=== PATIENT | male | born 1950 | race Caucasian/White ===

== ENCOUNTER 2020-07-18 05:27 | Emergency (ER) | payer OTHER, SELFPAY ==
[2020-07-18 05:30] VITALS: BP 128/68; PULSE 62; RESP 16; TEMP 35.9; O2SAT 100; BMI 24.3
--- NOTE | 2020-07-18 05:48 | ED_ITS ---
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 no other rash no shortness of breath no skin breakdown patient been using Benadryl will still itching a lot complaint: rash Onset (ago): day(s) (1) Related Data Previous Rx's Medication Instructions Recorded prednisone 40 mg PO DAILY #10 tab 07/18/20 Allergies Allergy/AdvReac Type Severity Reaction Status Date / Time No Known Allergies Allergy Unverified 04/30/20 14:36 [No Known Allergies*] Review of Systems Review of Systems: Yes all other systems are reviewed and are negative [facility] Past Medical History Medical History No known health problems Social History Social History Advance Directives: No Advance Directives Information Provided: No Physical Exam Vital Signs: Vital Signs: Last Vital Signs Temp 96.7 F L 07/18/20 05:30 Pulse 62 07/18/20 05:30 Resp 16 07/18/20 05:30 BP 128/68 07/18/20 05:30 Pulse Ox 100 07/18/20 05:30 Body Mass Index 24.3 Const: General: cooperative, healthy appearing, comfortable and no acute distress Orientation/consciousness: patient oriented x3 Skin: Other: contact dermatitis erythematous rash bilateral arm and dorsum of the hand no other rash noticed no skin breakdown Neuro: General: patient oriented x3 Discharge Plan Discharge Clinical Impression: Contact dermatitis Qualifiers: Contact dermatitis type: allergic Contact dermatitis trigger: other chemical product Qualified Code(s): L23.5 - Allergic contact dermatitis due to other chemical products Patient Disposition: Home, Self-Care Instructions: Contact Dermatitis (ED) Additional Instructions: take Benadryl 1-2 tablets every 6 hours for itching. Take prednisone 2 tablets daily for 5 days. Report to PCP /ED if worsening of rash Prescriptions: New prednisone 20 mg tablet 40 mg PO DAILY Qty: 10 RF: 0 Interventions: ED Discharge Assessment Last Done: 07/18/20 06:57 Discharge Date/Time: 07/18/20 06:57
[2020-07-18] MEDS: predniSONE 20 MG TABLET 60 MG PO (06:25)
== END 2020-07-18 06:57 | disposition home or self-care (01) ==
PROVIDERS: Emergency Provider Internal Medicine; PCP Internal Medicine
DX: L23.5 Allergic contact dermatitis due to other chemical products (principal)
CPT/HCPCS: 99283

== ENCOUNTER 2020-10-14 08:02 | Day surgery (SDC) | payer OTHER, SELFPAY ==
--- NOTE | 2020-10-13 09:57 | HO.ANESPROP2 ---
Documented by User: Sweta Zuniga 10/13/20 10:01 HPI - Anesthesia Eval Consult details Narrative: 69yo M for Colonoscopy [facility] Past Medical History Medical History No known health problems Surgical History Surgical History H/O basal cell carcinoma excision S/P skin biopsy Social History Social History Smoking Status: Never smoker Use of substances other than those prescribed or required for medical reasons: No Have you been hit, kicked, punched, or otherwise hurt by someone within the past year? If so, by whom?: No Advance Directives: No Advance Directives Information Provided: No Meds Allergies Allergy/AdvReac Type Severity Reaction Status Date / Time No Known Allergies Allergy Verified 10/14/20 08:58 [No Known Allergies*] Exam Exam Date and Time: October 13, 2020956 Assessment and Plan Assessment Anesthesia Assessment: Chart Reviewed Documented by User: Christine Nelson 10/14/20 09:11 [facility] Past Medical History Medical History No known health problems Family History Family history of problems with anesthesia: No Surgical History Surgical History H/O basal cell carcinoma excision S/P skin biopsy History of Problems with Anesthesia: No Social History Social History Smoking Status: Never smoker Use of substances other than those prescribed or required for medical reasons: No Have you been hit, kicked, punched, or otherwise hurt by someone within the past year? If so, by whom?: No Advance Directives: No Advance Directives Information Provided: No Meds Allergies Allergy/AdvReac Type Severity Reaction Status Date / Time No Known Allergies Allergy Verified 10/14/20 08:58 [No Known Allergies*] Exam Height,Weight and Vital Signs: Vital Signs Temp Pulse Resp BP Pulse Ox 10/14/20 08:55 97.9 F 62 18 130/69 99 Airway Mallampati Class: II TM Dist: >3cm Neck ROM: Full Heart: RRR Lungs: CTAB Assessment and Plan Assessment Anesthesia Assessment: Anesthesia Plan Discussed and Chart Reviewed Final Anesthetic Review NPO: Yes ASA Class: I Final Preanesthetic Review: No Changes in Pt Med Stat, Meds/Allgs Chart Reviewed, Consent Obtained/Reviewed and Anes Risks/Benef Reviewed Patient Risk: Low Procedure Risk: Low Assessment/Block/Sedation in SS: Assess/Block/Sedation-SS Anesthetic Plan Anesthetic Plan: MAC: Disposition: Standard PACU
[2020-10-14 08:38] VITALS: BMI 24.7
[2020-10-14 08:55] VITALS: BP 130/69; PULSE 62; RESP 18; TEMP 36.6; O2SAT 99
[2020-10-14] MEDS: Lactated Ringers 1,000 ML 100 ML IVCONT (09:16)
[2020-10-14 10:47] VITALS: BP 89/56; PULSE 50; RESP 12; TEMP 36.7; O2SAT 96
--- NOTE | 2020-10-14 10:48 | PM.OP ---
Brief Operative Note Date of Service: 10/14/20 Pre-op diagnosis: Screening, history of tubular adenomas Post-op diagnosis: other (Colon polyps, Diverticulosis) Procedure: Colonoscopy to the cecum with biopsy and removal of polyps Surgeon: Jorge A Avalos Anesthesia: MAC Estimated blood loss (mL): 3.0 Pathology: other (A. Colon polyps at 20cm) Condition: stable Disposition: PACU
[2020-10-14 10:52] VITALS: BP 101/62; PULSE 49; RESP 16; O2SAT 95
[2020-10-14 11:07] VITALS: BP 104/54; PULSE 50; RESP 17; TEMP 36.1; O2SAT 97
--- NOTE | 2020-10-14 12:25 | OP_ITS ---
SURGEON: Jorge A Avalos MD INDICATIONS: The patient presents for followup of colorectal cancer screening and personal history of tubular adenoma of the colon. Full consent has been obtained from him for this, including risks of bleeding and perforation. PREOPERATIVE DIAGNOSIS: POSTOPERATIVE DIAGNOSIS: PROCEDURE PERFORMED: Colonoscopy to cecum with biopsy and removal of polyps. ESTIMATED BLOOD LOSS: COMPLICATIONS: ANESTHESIA: Monitored anesthesia care. ASSISTANTS: SPECIMENS: PREOPERATIVE DIAGNOSES: Colorectal cancer screening and personal history of tubular adenoma of the colon. POSTOPERATIVE DIAGNOSES: Colorectal cancer screening and personal history of tubular adenoma of the colon, colon polyps, diverticulosis and internal hemorrhoids. DESCRIPTION OF PROCEDURE: The patient was placed in the left lateral decubitus position. The digital rectal exam revealed no abnormalities. The Olympus video pediatric colonoscope was entered into the rectum and advanced easily to the cecum. Once in the cecum, I did identify normal-appearing cecal pouch with appendiceal orifice and a normal-appearing ileocecal valve. The entire cecum was well visualized and appeared normal. There was transillumination of light deep in the right lower quadrant. The scope was slowly withdrawn assessing all mucosal surfaces carefully. Preparation was excellent. At 20 cm, were 2 flat approximately 3 or 4 mm polyps, which were each biopsied and completely removed with cold biopsy forceps. I did not visualize any other polyps, colitis, nor angiodysplasia. There was a mild amount of sigmoid diverticulosis. In the rectum, scope was retroflexed visualizing some small internal hemorrhoids, but no other pathology. The rectal mucosa appeared normal. Scope was straightened out and withdrawn from the patient. He tolerated the procedure well and was returned to the recovery area in stable condition. IMPRESSION: 1. Small colon polyps, status post biopsy and removal. 2. Diverticulosis. 3. Internal hemorrhoids. PLAN: The results of biopsy will be checked. I would recommend a repeat colonoscopy in 3 years for further screening given his previous history of tubular adenomas. He was advised not to use any aspirin and NSAIDs for 1 week. He will otherwise see me on a p.r.n. basis. This has been discussed with his . MD JOEL Mcallisetr/CORBY / [id number]
== END 2020-10-14 12:00 | disposition home or self-care (01) ==
PROVIDERS: PCP Internal Medicine; Visit Provider Internal Medicine
PROC: 0DJD8ZZ Inspection of Lower Intestinal Tract, Via Natural or Artificial Opening Endoscopic (ICD-10-PCS; CPT 45378; principal; 2020-10-14 09:20)
DX: Z12.11 Encounter for screening for malignant neoplasm of colon (principal); Z86.010 Personal history of colon polyps; D12.5 Benign neoplasm of sigmoid colon; K57.30 Diverticulosis of large intestine without perforation or abscess without bleeding; K64.8 Other hemorrhoids; Z85.828 Personal history of other malignant neoplasm of skin
CPT/HCPCS: 45380; 88305

== ENCOUNTER 2021-11-08 12:09 | Outpatient (REF) | payer OTHER, SELFPAY ==
[2021-11-08 12:12] LABS: MANUAL DIFF FLAG NO
[2021-11-08 12:18] LABS: Basophils Percent Auto 0.6 % (0-2); Eosinophils Absolute Auto 0.1 X10*3/uL (0.0-0.4); Eosinophils Percent Auto 1.7 % (0-4); Hemoglobin 15.9 g/dl (14.0-18.0); Imm Gran Abs Auto 0.01 X10*3/uL (0.00-0.03); Imm Gran Pct Auto 0.2 % (0.0-0.4); Lymphocytes Absolute Auto 1.8 X10*3/uL (1.2-4.9); Lymphocytes Percent Auto 34.1 % (20-40); Mean Corpuscular HGB Conc 33.8 g/dl (31.0-36.0); Mean Corpuscular Hemoglobin 31.7 pg (27.0-33.0); Mean Corpuscular Volume 93.8 fL (80.0-98.0); Mean Platelet Volume 10.6 fL (9.4-12.4); Monocytes Absolute Auto 0.7 X10*3/uL (0.1-1.2); Monocytes Percent Auto 12.5 % (2-11); Neutrophils Absolute Auto 2.7 x10*3/uL (2.0-8.3); Neutrophils Percent Auto 50.9 % (45-73); Platelet Count 209 X10*3/uL (160-400); Red Blood Count 5.01 X10*6/uL (4.60-5.80); Red Cell Distribution Width 14.5 % (11.0-16.0); White Blood Count 5.3 X10*3/uL (4.8-10.8)
[2021-11-08 12:28] LABS: Alanine Aminotransferase 31 U/L (0-40); Albumin Level 4.2 g/dL (3.5-5.0); Alkaline Phosphatase 61 U/L (39-117); Anion Gap 10 (12-20); Aspartate Amino Transferase 36 U/L (5-37); Bilirubin Total 0.8 mg/dL (0.0-1.0); Blood Urea Nitrogen 13 mg/dL (9-16); Calcium 9.4 mg/dL (8.4-10.2); Carbon Dioxide 28 mmol/L (22-29); Chloride 105 mmol/L (96-108); Cholesterol 219 mg/dL; Estimated Glomerular Filt Rate > 60; Glucose Fasting 90 mg/dL (60-99); HDL Cholesterol 51 mg/dL; LDL Cholesterol Calculated 150 mg/dl; Potassium 4.2 mmol/L (3.3-5.1); Sodium 139 mmol/L (135-145); Total Protein 6.7 g/dL (6.5-8.0); Triglycerides 94 mg/dL
[2021-11-08 12:45] LABS: Appearance Urine CLEAR; Color Urine YELLOW; Glucose Urine UA NEG (NEG); Leukocyte Esterase Urine NEG (NEG); Nitrite Urine NEG (NEG); Urine Blood NEG (NEG); Urine Ketones NEG (NEG); Urine Protein NEG (NEG-TRACE)
[2021-11-08 12:48] LABS: PSA,Total (Free>4and<10) 0.53 ng/mL (0.00-4.00)
== END 2021-11-08 12:10 | disposition home or self-care (01) ==
LOC: HO.LNP 12:09
PROVIDERS: PCP Internal Medicine; Visit Provider Internal Medicine
DX: Z00.00 Encounter for general adult medical examination without abnormal findings (principal); Z12.5 Encounter for screening for malignant neoplasm of prostate
CPT/HCPCS: 80053; 80061; 81003; 84153; 85025

== ENCOUNTER 2022-03-04 10:14 | Outpatient (REF) | payer OTHER, SELFPAY ==
--- NOTE | ~2022-03-04 | XR_ITS ---
EXAMINATION: XR HAND, RIGHT CLINICAL INFORMATION: Pain right hand 3rd digit. COMPARISON: None TECHNIQUE: PA, lateral, and oblique views of the right hand. FINDINGS: There are hypertrophic posterior enthesophytes with posterior soft tissue swelling along the DIP joints of the 2nd and 3rd digits. There is mild reduction in the PIP and DIP joint spaces of all digits. No visible acute fracture or dislocation seen. The MCP joint spaces are maintained. The soft tissues are normal. 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 There is associated mild dorsal soft tissue swelling at the DIP joint. No acute fracture or dislocation seen.
== END 2022-03-04 10:15 | disposition home or self-care (01) ==
LOC: HO.HOSX 10:14
PROVIDERS: Visit Provider Orthopaedic Surgery
DX: M79.641 Pain in right hand (principal)
CPT/HCPCS: 73130

== ENCOUNTER 2022-11-08 10:52 | Outpatient (REF) | payer OTHER, SELFPAY ==
[2022-11-08 10:55] LABS: MANUAL DIFF FLAG NO
[2022-11-08 11:17] LABS: Basophils Percent Auto 0.5 % (0-2); Eosinophils Absolute Auto 0.3 X10*3/uL (0.0-0.4); Eosinophils Percent Auto 5.3 % (0-4); Hematocrit 47.5 % (42.0-52.0); Hemoglobin 16.6 g/dl (14.0-18.0); Imm Gran Abs Auto 0.01 X10*3/uL (0.00-0.03); Imm Gran Pct Auto 0.2 % (0.0-0.4); Lymphocytes Absolute Auto 2.2 X10*3/uL (1.2-4.9); Lymphocytes Percent Auto 38.6 % (20-40); Mean Corpuscular HGB Conc 34.9 g/dl (31.0-36.0); Mean Corpuscular Hemoglobin 31.7 pg (27.0-33.0); Mean Corpuscular Volume 90.6 fL (80.0-98.0); Mean Platelet Volume 10.3 fL (9.4-12.4); Monocytes Absolute Auto 0.6 X10*3/uL (0.1-1.2); Monocytes Percent Auto 11.1 % (2-11); Neutrophils Absolute Auto 2.5 x10*3/uL (2.0-8.3); Neutrophils Percent Auto 44.3 % (45-73); Platelet Count 203 X10*3/uL (160-400); Red Blood Count 5.24 X10*6/uL (4.60-5.80); Red Cell Distribution Width 13.3 % (11.0-16.0); White Blood Count 5.7 X10*3/uL (4.8-10.8)
[2022-11-08 11:30] LABS: Color Urine Yellow; Glucose Urine UA Negative (Negative); Leukocyte Esterase Urine Negative (Negative); Nitrite Urine Negative (Negative); PH 7.5 (5.0-9.0); Specific Gravity - Urine <= 1.005 (1.005-1.025); Urine Blood Negative (Negative); Urine Ketones Negative (Negative); Urine Protein Negative (Neg-Trace)
[2022-11-08 11:31] LABS: Appearance Urine Clear; Bacteria Urine None Seen (None Seen); Hyaline Casts Urine 0-2 /LPF (0-2); RBC Urine 0-2 /HPF (0-2); Squamous Epithelial Cell Urine 0-2 /HPF (0-2); WBC Urine 0-5 /HPF (0-5)
[2022-11-08 12:04] LABS: Alanine Aminotransferase 28 U/L (0-40); Albumin Level 4.1 g/dL (3.5-5.0); Alkaline Phosphatase 58 U/L (39-117); Anion Gap 12 (12-20); Aspartate Amino Transferase 31 U/L (5-37); Bilirubin Total 0.9 mg/dL (0.0-1.0); Blood Urea Nitrogen 14 mg/dL (9-16); Calcium 9.3 mg/dL (8.4-10.2); Carbon Dioxide 27 mmol/L (22-29); Chloride 107 mmol/L (96-108); Cholesterol 237 mg/dL; Estimated Glomerular Filt Rate > 60; Glucose Fasting 92 mg/dL (60-99); HDL Cholesterol 48 mg/dL; LDL Cholesterol Calculated 174 mg/dl; Potassium 4.6 mmol/L (3.3-5.1); Sodium 141 mmol/L (135-145); Total Protein 6.2 g/dL (6.5-8.0); Triglycerides 75 mg/dL
[2022-11-08 12:21] LABS: PSA,Total (Free>4and<10) 0.65 ng/mL (0.00-4.00)
== END 2022-11-08 10:53 | disposition home or self-care (01) ==
LOC: HO.LNP 10:52
PROVIDERS: Visit Provider Internal Medicine
DX: Z00.00 Encounter for general adult medical examination without abnormal findings (principal); Z12.5 Encounter for screening for malignant neoplasm of prostate; E78.00 Pure hypercholesterolemia, unspecified
CPT/HCPCS: 80053; 80061; 81001; 84153; 85025

== ENCOUNTER 2023-05-18 10:58 | Outpatient (REF) | payer OTHER, SELFPAY ==
[2023-05-18 11:02] LABS: MANUAL DIFF FLAG NO
[2023-05-18 11:07] LABS: Basophils Percent Auto 0.5 % (0-2); Eosinophils Absolute Auto 0.2 X10*3/uL (0.0-0.4); Eosinophils Percent Auto 2.9 % (0-4); Hematocrit 45.4 % (42.0-52.0); Hemoglobin 15.8 g/dl (14.0-18.0); Imm Gran Abs Auto 0.02 X10*3/uL (0.00-0.03); Imm Gran Pct Auto 0.4 % (0.0-0.4); Lymphocytes Absolute Auto 1.9 X10*3/uL (1.2-4.9); Lymphocytes Percent Auto 35.2 % (20-40); Mean Corpuscular HGB Conc 34.8 g/dl (31.0-36.0); Mean Corpuscular Hemoglobin 31.9 pg (27.0-33.0); Mean Corpuscular Volume 91.5 fL (80.0-98.0); Mean Platelet Volume 10.4 fL (9.4-12.4); Monocytes Absolute Auto 0.6 X10*3/uL (0.1-1.2); Monocytes Percent Auto 11.1 % (2-11); Neutrophils Absolute Auto 2.8 x10*3/uL (2.0-8.3); Neutrophils Percent Auto 49.9 % (45-73); Platelet Count 196 X10*3/uL (160-400); Red Blood Count 4.96 X10*6/uL (4.60-5.80); Red Cell Distribution Width 14.2 % (11.0-16.0); White Blood Count 5.5 X10*3/uL (4.8-10.8)
[2023-05-18 11:35] LABS: Alanine Aminotransferase 27 U/L (0-40); Albumin Level 4.1 g/dL (3.5-5.0); Alkaline Phosphatase 53 U/L (39-117); Anion Gap 14 (12-20); Aspartate Amino Transferase 36 U/L (5-37); Bilirubin Total 0.9 mg/dL (0.0-1.0); Blood Urea Nitrogen 13 mg/dL (9-16); Calcium 9.2 mg/dL (8.4-10.2); Carbon Dioxide 24 mmol/L (22-29); Chloride 104 mmol/L (96-108); Cholesterol 195 mg/dL (<200); Estimated Glomerular Filt Rate > 60; Glucose Fasting 95 mg/dL (60-99); HDL Cholesterol 54 mg/dL (>40); LDL Cholesterol Calculated 125 mg/dL (<100); Potassium 4.2 mmol/L (3.3-5.1); Sodium 138 mmol/L (135-145); Total Protein 6.7 g/dL (6.5-8.0); Triglycerides 84 mg/dL (<150)
== END 2023-05-18 10:59 | disposition home or self-care (01) ==
LOC: HO.LNP 10:58
PROVIDERS: Visit Provider Internal Medicine
DX: Z00.00 Encounter for general adult medical examination without abnormal findings (principal); Z12.5 Encounter for screening for malignant neoplasm of prostate; E78.00 Pure hypercholesterolemia, unspecified
CPT/HCPCS: 80053; 80061; 81001; 84153; 85025

== ENCOUNTER 2023-11-10 11:36 | Outpatient (REF) | payer OTHER, SELFPAY ==
[2023-11-10 11:40] LABS: MANUAL DIFF FLAG NO
[2023-11-10 12:15] LABS: Basophils Percent Auto 0.5 % (0-2); Eosinophils Absolute Auto 0.2 X10*3/uL (0.0-0.4); Eosinophils Percent Auto 3.2 % (0-4); Hematocrit 48.3 % (42.0-52.0); Hemoglobin 16.8 g/dl (14.0-18.0); Imm Gran Abs Auto 0.02 X10*3/uL (0.00-0.03); Imm Gran Pct Auto 0.3 % (0.0-0.4); Lymphocytes Absolute Auto 2.1 X10*3/uL (1.2-4.9); Lymphocytes Percent Auto 35.4 % (20-40); Mean Corpuscular HGB Conc 34.8 g/dl (31.0-36.0); Mean Corpuscular Hemoglobin 31.9 pg (27.0-33.0); Mean Corpuscular Volume 91.7 fL (80.0-98.0); Mean Platelet Volume 10.3 fL (9.4-12.4); Monocytes Absolute Auto 0.6 X10*3/uL (0.1-1.2); Monocytes Percent Auto 10.8 % (2-11); Neutrophils Absolute Auto 2.9 x10*3/uL (2.0-8.3); Neutrophils Percent Auto 49.8 % (45-73); Platelet Count 198 X10*3/uL (160-400); Red Blood Count 5.27 X10*6/uL (4.60-5.80); White Blood Count 5.9 X10*3/uL (4.8-10.8)
[2023-11-10 12:17] LABS: Appearance Urine Clear; Color Urine Yellow; Glucose Urine UA Negative (Negative); Leukocyte Esterase Urine Negative (Negative); Nitrite Urine Negative (Negative); Urine Blood Negative (Negative); Urine Ketones Negative (Negative); Urine Protein Negative (Neg-Trace)
[2023-11-10 12:21] LABS: Bacteria Urine None Seen (None Seen); Hyaline Casts Urine 0-2 /LPF (0-2); RBC Urine 0-2 /HPF (0-2); Squamous Epithelial Cell Urine 0-2 /HPF (0-2); WBC Urine 0-5 /HPF (0-5)
[2023-11-10 12:32] LABS: Alanine Aminotransferase 29 U/L (0-40); Albumin Level 4.2 g/dL (3.5-5.0); Alkaline Phosphatase 62 U/L (39-117); Anion Gap 12 (12-20); Aspartate Amino Transferase 34 U/L (5-37); Bilirubin Total 0.7 mg/dL (0.0-1.0); Blood Urea Nitrogen 12 mg/dL (9-16); Calcium 9.3 mg/dL (8.4-10.2); Carbon Dioxide 26 mmol/L (22-29); Chloride 104 mmol/L (96-108); Cholesterol 230 mg/dL (<200); Estimated Glomerular Filt Rate > 60; Glucose Fasting 87 mg/dL (60-99); HDL Cholesterol 57 mg/dL (>40); LDL Cholesterol Calculated 153 mg/dL (<100); Potassium 3.7 mmol/L (3.3-5.1); Sodium 138 mmol/L (135-145); Triglycerides 104 mg/dL (<150)
[2023-11-10 12:48] LABS: PSA,Total (Free>4and<10) 0.57 ng/mL (0.00-4.00)
== END 2023-11-10 11:37 | disposition home or self-care (01) ==
LOC: HO.LNP 11:36
PROVIDERS: Visit Provider Internal Medicine
DX: Z00.00 Encounter for general adult medical examination without abnormal findings (principal); Z12.5 Encounter for screening for malignant neoplasm of prostate; E78.00 Pure hypercholesterolemia, unspecified
CPT/HCPCS: 80053; 80061; 81001; 84153; 85025

== ENCOUNTER 2024-11-06 06:43 | Day surgery (SDC) | payer OTHER, SELFPAY ==
--- OUTSIDE RECORDS SUMMARY | 2024-10-08 13:58 | XMS_ITS ---
Author Organization Abilio Lloyd MD Address [address] [place] [phone] Care Team Providers Care Rehabilitation Director Name Role Phone Abilio Lloyd Primary Care Provider Allergies No Known Allergies REASON FOR VISIT 6 month, NO Covid symptoms Medications Medication SIG (Take, Route, Frequency, Duration) Notes Start Date End Date Status Ibuprofen 800 MG 1 tablet with food o r milk as needed Orally Three times a day for 10 days 09/17/2019 Not-Taking Cyclobenzaprine HCl 5 MG 1 tablet as nee ded Orally Three times a day for 10 days 09/17/2019 Not-Taking Clobetasol Propionate 0.05 % 1 application Externally Twice a day for 10 day(s) 07/20/2020 Not-Taking Vital Signs Blood pressure systolic 120 mm Hg 05/29/20 23 Blood pressure diastolic 72 mm Hg 023 Height 75 in 05/29/2023 Weight 208 lbs 05/29/2023 BMI 26.00 kg/m2 05/29/2023 weight is down 15 pounds sin 11-15-22 Encounters Encounter Location Date Provider Diagnosis Abilio Lloyd MD [address] [place] [address] [place] [phone] 05/29/2023 Abilio Lloyd Spinal stenosis of l umbar region without neurogenic claudication M48.061 ; Right ankle swelling M25.471 and Hypercholesteremia E78.00 Assessments Encounter Date Diagnosis (ICD Code) Assessment Notes Treatment Notes Treatment Clinical Notes Section Notes 05/29/2023 Spinal stenosis of lumbar region without neurogenic claudication (ICD-10 - M48.061) only pain is during sleep, will continue to monitor 05/29/2023 Right ankle swelling (ICD-10 - M25.471) has resolved 05/29/2023 Hypercholesteremia (ICD-10 - E78.00) stable,. will continue to monitor Plan Of Treatment Treatment Notes Assessment Notes Spinal stenosis of lumbar re gion without neurogenic claudication only pain is during sleep, will continue to monitor Right ankle swelling has resolved Hypercholesteremia stable,. will contin ue to monitor Next Appt Details Provider Name:Abilio gonsalez, 12/23/2024 07:30:00 AM, [address] [place] [address], Suite [facility], [place], [place], [phone], Provider Name:Abilio gonsalez, 12/30/2024 10:30:00 AM, [address] [place] [address], Suite [facility], [place], [place], [phone], Progress Notes * Alen HIDALGO BDOB:07/1951 (72 yo M)Acc No.[id number]:05/29/2023 Progress Notes Patient:?Alen Hidalgo Provider:?Abilio Lloyd MD :1950???Age:72 Y???Sex:Male Agus e:05/29/2023 Address: [address], [id number] Subjective: * Chief Complaints: * ???6 monthNO Covid symptoms * HPI: ???SDOH Questions:?SDOH Questions?In the past year have you been worried about losing housing??No.?Symptom(s):? patient is a 72 yo male here for 6 month follow up visit, has been doing well.. had mri on back and ankle. * ROS:?General/Constitutional:?Denies?Chills.?Denies?Fatigue.?Denies?Fever.?Denies?Headache.?ENT:?Patient denies?decreased sense of smell , any loss of taste , sore throat.?Denies?Sore throat.?Respiratory:?Denies?Cough.?Denies?Shortness of breath at rest.?Denies?Shortness of breath with exertion.?Gastrointestinal:?Denies?Diarrhea.?Denies?Nausea.?Musculoskeletal:?Patient denies?muscle aches.?Peripheral Vascular:?Patient denies?red and blue toes.? * Medical History:? * Surgical History:? * Hospitalization/Major Diagno stic Procedure:? * Medications:?Not-Taking/PRNC lobetasol Propionate 0.05 % Cream 1 application Externally Twice a dayIbuprofen 800 MG Tablet 1 tablet with food or milk as needed Orally Three times a dayCyclobenzaprine HCl 5 MG Tablet 1 tablet as needed Orally Three times a dayMedication List reviewed and reconciled with the patientNot-Taking/PRN Clobetasol Propionate 0.05 % Cream 1 application Externally Twice a dayNot-Taking/PRN Ibuprofen 800 MG Tablet 1 tablet with food or milk as needed Orally Three times a dayNot-Taking/PRN Cyclobenzaprine HCl 5 MG Tablet 1 tablet as needed Orally Three times a dayMedication List reviewed and reconciled with the patient * Allergies:?N.K.D.A.yes[Aller gies Verified] Objective: * Vitals:?Ht: 75, Wt:208, BMI: 26.00, BP:120/72 weight is down 15 pounds since 11-15-22. * ???Past Orders: ???Lab:Complete Blood Count Auto Diff (Order Date - 05/18/2023) (Collection Date - 05/18/2023) ? Value Reference Range ?White Blood Count 5.5 4. 8-10.8 - X10*3/uL ?Red Blood Count 4.96 4.60 -5.80 - X10*6/uL ?Hemoglobin 15.8 14.0-18.0 - g/dl ?Hematocrit 45.4 42.0-52.0 - % ?Mean Corpuscular Volume 91.5 80.0-98.0 - fL ?Mean Corpuscular Hemoglobin 31.9 27.0-33.0 - pg ?Mean Corpuscular HGB Conc 34.8 31.0-36.0 - g/dl ?Red Cell Distribution Width 14.2 11.0-16.0 - % ?Platelet Count 196 160-4 00 - X10*3/uL ?Mean Platelet Volume 10.4 9.4-12.4 - fL ?Neutrophils Percent Auto 49.9 45-73 - % ?Imm Gran Pct Auto 0.4 0. 0-0.4 - % ?Lymphocytes Percent Auto 35.2 20-40 - % ?Monocytes Percent Auto 11.1 H 2-11 - % ?Eosinophils Percent Auto 2.9 0-4 - % ?Basophils Percent Auto 0.5 0-2 - % ?NRBC Pct Auto 0.0 0.0-0. 2 - /100WBC ?Neutrophils Absolute Auto 2.8 2.0-8.3 - x10*3/uL ?Imm Gran Abs Auto 0.02 0. 00-0.03 - X10*3/uL ?Lymphocytes Absolute Auto 1.9 1.2-4.9 - X10*3/uL ?Monocytes Absolute Auto 0.6 0.1-1.2 - X10*3/uL ?Eosinophils Absolute Auto 0.2 0.0-0.4 - X10*3/uL ?Basophils Absolute Auto 0.0 0.0-0.2 - X10*3/uL ?NRBC Abs Auto 0.000 0.0-0. 012 - X10*3/uL ???Lab:Comprehensive [place]. P nereyda Fast (Order Date - 05/18/2023) (Collection Date - 05/18/2023) ? Value Reference Range ?Sodium 138 135-145 - mmo l/L ?Bilirubin Total 0.9 0.0- 1.0 - mg/dL ?Aspartate Amino Transferase 36 5-37 - U/L ?Alanine Aminotransferase 27 0-40 - U/L ?Total Protein 6.7 6.5-8. 0 - g/dL ?Albumin Level 4.1 3.5-5. 0 - g/dL ?Alkaline Phosphatase 53 39-117 - U/L ?Potassium 4.2 3.3-5.1 - mmol/L ?Chloride 104 96-108 - mm ol/L ?Carbon Dioxide 24 22-29 - mmol/L ?Anion Gap 14 12-20 - ?Blood Urea Nitrogen 13 9-16 - mg/dL ?Creatinine 0.81 0.5-1.4 - mg/dL ?Estimated Glomerular Filt Rate > 60 - ?Glucose Fasting 95 60-9 9 - mg/dL ?Calcium 9.2 8.4-10.2 - m g/dL ???Lab:Lipid Panel (Order Da te - 05/18/2023) (Collection Date - 05/18/2023) ? Value Reference Range ?Triglycerides 84 <150 - mg/dL ?Cholesterol 195 <200 - m g/dL ?LDL Cholesterol Calculated 125 H <100 - mg/dL ?HDL Cholesterol 54 >40 - mg/dL ???Lab:PSA,Total (Free>4and< 10) (Order Date - 05/18/2023) (Collection Date - 05/18/2023) ? Value Reference Range ?PSA,Total (Free>4and<10) 0.69 0.00-4.00 - ng/mL ???Lab:UA ClnCatch+Micro w/r flx Cult (Order Date - 05/18/2023) (Collection Date - 05/18/2023) ? Value Reference Range ?Color Urine Yellow - ?Appearance Urine Clear - ?PH 8.0 5.0-9.0 - ?Glucose Urine UA Negative Neg ative - mg/dL ?Urine Blood Negative Negative - ?Specific [place] - Urine 1.010 1.005-1.025 - ?Urine Protein Negative Neg-Tr chichi - mg/dL ?Urine Ketones Negative Negati ve - mg/dL ?Nitrite Urine Negative Negati ve - ?Leukocyte Esterase Urine Negative Negative - ?RBC Urine 0-2 0-2 - /HPF ?WBC Urine 0-5 0-5 - /HPF ?Squamous Epithelial Cell Urine 0-2 0-2 - /HPF ?Bacteria Urine None Seen None Seen - ?Hyaline Casts Urine 0-2 0-2 - /LPF * Examination: ???General Examination: ?HEAD:? normocephalic.?SKIN:? good turgor.?HEART:? regular rate and rhythm, no murmurs, rubs, gallops.?LUNGS:? no wheezes, rales, rhonchi, good air movement, clear to auscultation bilaterally.?NEUROLOGIC:? abnormal with no foot drop. .? Assessment: * Assessment: 1.?Spinal stenosis of lumbar region without neurogenic claudication - M48.061 (Primary)?2.?Right ankle swelling - M25.471?3.?Hypercholesteremia - E78.00? Plan: * Treatment: 2.?Right ankle swelling? Notes: has resolved.?? 3.?Hypercholesteremia? Notes: stable,. will continue to monitor.?? * Procedure Codes:? * * Sign off status: Completed true * Provider:?Abilio Lloyd MD Date:?1 Generated for Lashay junior/Neel/eTransmitting on:?10/08/2024 01:58 PM EST History and Physical Notes * HPI (History of Present Illness) Category Sub-Category Detail Notes Category Not es Symptom(s) patient is a 72 yo male here for 6 month follow up visit, has been doing well.. had mri on back and ankle SDOH Questions SDOH Questions In the past year have you been worried about losing housing?: No Examination Category Sub-Category Detail Notes Category Not es General Examination HEAD: normocephalic HEART: regular rate and rhy thm, no murmurs, rubs, gallops LUNGS: no wheezes, rales, r honchi, good air movement, clear to auscultation bilaterally NEUROLOGIC: abnormal with no cb t drop. SKIN: good turgor
--- OUTSIDE RECORDS SUMMARY | 2024-10-08 13:59 | XMS_ITS ---
Author Organization Abilio Lloyd MD Address [address] [place] [phone] Care Team Providers Care [employer] Worker Name Role Phone Abilio Lloyd Primary Care Provider [phone] Allergies No Known Allergies Results Component Value Reference Range Notes Occult Blood, Stool, Guaiac Reviewed date:12/26/2023 02:16:03 PM Interpretation: Performing Lab: Notes/Report: 0 Occult Blood, Stool, Guaiac Neg REASON FOR VISIT annual visit, No Covid symptoms Medications Medication SIG (Take, Route, Frequency, Duration) Notes Start Date End Date Status Clobetasol Propionate 0.05 % 1 application Externally Twice a day for 10 day(s) 07/20/2020 Not-Taking Ibuprofen 800 MG 1 tablet with food o r milk as needed Orally Three times a day for 10 days 09/17/2019 Not-Taking Cyclobenzaprine HCl 5 MG 1 tablet as nee ded Orally Three times a day for 10 days 09/17/2019 Not-Taking Social History Tobacco Use: Social History Observation Description Date Details (start date - stop date) Never Smoker NA - NA Tobacco Use/Smoking Question Answer Notes Patient is a nonsmoker Additional Findings: Tobacco Non-User Cu rrent non-smoker, currently using no form of tobacco Alcohol Screen Question Answer Notes Did you have a drink containing alcohol in the p ast year? No Points 0 Interpretation Negative Vital Signs Blood pressure systolic 132 mm Hg 12/26/19 24 Blood pressure diastolic 60 mm Hg 024 Height 75 in 12/26/2023 Weight 220 lbs 12/26/2023 BMI 27.50 kg/m2 12/26/2023 weight is up 12 pounds since 05-29-24 Encounters Encounter Location Date Provider Diagnosis Abilio Lloyd MD [address] [place] [address] [place] [phone] 12/26/2023 Abilio Lloyd Vertigo R42 ; Annual physical exam Z00.00 ; History of basal cell cancer Z85.828 ; Hypercholesteremia E78.00 ; Colon cancer screening Z12.11 and Depression screening Z13.31 Assessments Encounter Date Diagnosis (ICD Code) Assessment Notes Treatment Notes Treatment Clinical Notes Section Notes 12/26/2023 Vertigo (ICD-10 - R42) had o nly one episode, will continue to monitor 12/26/2023 Annual physical exam (ICD-10 - Z00.00) labs reviewed and discussed with patient 12/26/2023 History of basal endy l cancer (ICD-10 - Z85.828) going for some moh's surgery 12/26/2023 Hypercholesteremia (ICD-10 - E78.00) needs to get on diet, will continue to monitor 12/26/2023 Colon cancer screeni ng (ICD-10 - Z12.11) guaiac negative 12/26/2023 Depression screening (ICD-10 - Z13.31) negative screen Plan Of Treatment Treatment Notes Assessment Notes Vertigo had only one episode , will continue to monitor Annual physical exam labs reviewed and d iscussed with patient History of basal cell cancer going for s ome moh's surgery Hypercholesteremia needs to get on diet , will continue to monitor Colon cancer screening guaiac negative Depression screening negative screen Next Appt Details Follow Up: 1 Year, Reason: Provider Name:Abilio Jordan Anjelicaabbie wallace, 12/23/2024 07:30:00 AM, [address], [address], [place], [phone], Provider Name:Abilio Castillo wallace, 12/30/2024 10:30:00 AM, [address], [address], [place], [place], [phone], Progress Notes * Alen HIDALGO BDOB:07/1951 (73 yo M)Acc No.[id number]:12/26/2023 Progress Notes Patient:?Alen Hidalgo Provider:?Abilio Lloyd MD :1950???Age:73 Y???Sex:Male Agus e:12/26/2023 Address:[address] [place] [address] , [place] [id number] Subjective: * Chief Complaints: * ???Annual visitNo Covid symp toms * HPI: ???Depression Screening:?PHQ-9?Little interest or pleasure in doing things?Not at all,?Feeling down, depressed, or hopeless?Not at all,?Trouble falling or staying asleep, or sleeping too much?Not at all,?Feeling tired or having little energy?Not at all,?Poor appetite or overeating?Not at all,?Feeling bad about yourself or that you are a failure, or have let yourself or your family down?Not at all,?Trouble concentrating on things, such as reading the newspaper or watching television?Not at all,?Moving or speaking so slowly that other people could have noticed; or the opposite, being so fidgety or restless that you have been moving around a lot more than usual?Not at all,?Thoughts that you would be better off or of hurting yourself in some way?Not at all,?Total Score?0.?Interpretation and Intervention?Depression Screening Findings?Negative,?Follow-Up for Depression?: review of PHQ-9 found negative result, no follow-up needed.?Communication Needs:?Communication Needs?Does the patient have a hearing impairment?No,?Does the patient have a vision impairment??Yes,?If yes, what is the vision impairment??Glasses,?Does the patient have a cognition impairment??No.?Fall Risk:?History?Have you had any falls with injury in the past year??No,?Have you had two or more falls in the past year??No.?SDOH Questions:?SDOH Questions?In the past year have you been worried about losing housing??No,?In the past year have you or any family members you live with been unable to get any of the following when it was really needed? Check all that apply:?None.?Symptom(s):? patient is a 73 yo m,frank here for annual visit with review of recent labs and follow up of chronic issues. * ROS:?General/Constitutional:?Patient denies?fatigue , headache.?Change in appetite?denies.?Chills?denies.?Fever?denies.?Ophthalmologic:?Blurred vision?denies.?Discharge?denies.?Pain?denies.?ENT:?Patient denies?decreased sense of smell , any loss of taste , sore throat.?Decreased hearing?denies.?Sore throat?denies.?Swollen glands?denies.?Endocrine:?Cold intolerance?denies.?Excessive thirst?denies.?Heat intolerance?denies.?Weight loss?denies.?Respiratory:?Cough?denies.?Shortness of breath at rest?denies.?Shortness of breath with exertion?denies.?Wheezing?denies.?Cardiovascular:?Chest pain at rest?denies.?Chest pain with exertion?denies.?Irregular heartbeat?denies.?Shortness of breath?denies.?Gastrointestinal:?Abdominal pain?denies.?Change in bowel habits?denies.?Diarrhea?denies.?Nausea?denies.?Rectal bleeding?denies.?Vomiting?denies .?Genitourinary:?Blood in urine?denies.?Difficulty urinating?denies.?Frequent urination?denies.?Musculoskeletal:?Patient denies?muscle aches.?Painful joints?denies.?Weakness?denies.?Peripheral Vascular:?Patient denies?red and blue toes.?Skin:?Dry skin?denies.?Itching?denies.?Denies?Mole(s),? changes in moles, new moles or any lesions of concern.?Denies?Photosensitivity.?Rash?denies.?Neurologic:?Dizziness?denies.?Fainting?denies.?Headache?denies.? * Medical History:? * Surgical History:? * Hospitalization/Major Diagno stic Procedure:? * Family History:?Father: dece ased 90 yrs, diagnosed with COPD.?Mother: 88 yrs, diagnosed with Alzheimer disease.?1 brother(s) . .? Father- Parkinson's Mother- Dementia, No pertinent family medical history, Denies mental health/substance abuse family history, Denies mental health/substance abuse family history, Denies mental health/substance abuse family history. * Social History:?Tobacco Use:?Tobacco Use/Smoking?Patient is a?nonsmoker,?Additional Findings: Tobacco Non-User?Current non-smoker, currently using no form of tobacco.?Drugs/Alcohol:?Alcohol Screen?Did you have a drink containing alcohol in the past year??No,?Points?0,?Interpretation?Negative.?Miscellaneous:?Caffeine: yes, frequency:, more than 4 cups per day. no Children. Exercise: yes, 2-3 times per week walking, and light weights on other days. Housing: owning. Living with: . Marital status: . Occupation: retired. Pets: cat x1. no Travel outside of the [place]. * Medications:?Not-Taking/PRNC lobetasol Propionate 0.05 % Cream [...] Allergies:?N.K.D.A.yes[Aller gies Verified] Objective: * Vitals:?Ht: 75, Wt:220, BMI: 27.50, BP:132/60 weight is up 12 pounds since 05-29-24. * ???Past Orders: ???Lab:Lipid Panel (Order Da te 11/10/2023) (Collection Date - 11/10/2023) ? Value Reference Range ?Triglycerides 104 <150 - mg/dL ?Cholesterol 230 H <200 - m g/dL ?LDL Cholesterol Calculated 153 H <100 - mg/dL ?HDL Cholesterol 57 >40 - mg/dL ???Lab:PSA,Total (Free>4and< 10) (Order Date - 11/10/2023) (Collection Date - 11/10/2023) ? Value Reference Range ?PSA,Total (Free>4and<10) 0.57 0.00-4.00 - ng/mL ???Lab:Comprehensive [place]. P nereyda Fast (Order Date - 11/10/2023) (Collection Date - 11/10/2023) ? Value Reference Range ?Sodium 138 135-145 - mmo l/L ?Bilirubin Total 0.7 0.0- 1.0 - mg/dL ?Aspartate Amino Transferase 34 5-37 - U/L ?Alanine Aminotransferase 29 0-40 - U/L ?Total Protein 7.0 6.5-8. 0 - g/dL ?Albumin Level 4.2 3.5-5. 0 - g/dL ?Alkaline Phosphatase 62 39-117 - U/L ?Potassium 3.7 3.3-5.1 - mmol/L ?Chloride 104 96-108 - mm ol/L ?Carbon Dioxide 26 22-29 - mmol/L ?Anion Gap 12 12-20 - ?Blood Urea Nitrogen 12 9-16 - mg/dL ?Creatinine 1.01 0.5-1.4 - mg/dL ?Estimated Glomerular Filt Rate > 60 - ?Glucose Fasting 87 60-9 9 - mg/dL ?Calcium 9.3 8.4-10.2 - m g/dL ???Lab:UA ClnCatch+Micro w/r flx Cult (Order Date - 11/10/2023) (Collection Date - 11/10/2023) ? Value Reference Range ?Color Urine Yellow - ?Appearance Urine Clear - ?PH 7.0 5.0-9.0 - ?Glucose Urine UA Negative Neg ative - mg/dL ?Urine Blood Negative Negative - ?Specific [place] - Urine 1.010 1.005-1.025 - ?Urine Protein [...] ?Hyaline Casts Urine 0-2 0-2 - /LPF ???Lab:Complete Blood Count Auto Diff (Order Date - 11/10/2023) (Collection Date - 11/10/2023) ? Value Reference Range ?White Blood Count 5.9 4. 8-10.8 - X10*3/uL ?Red Blood Count 5.27 4.60 -5.80 - X10*6/uL ?Hemoglobin 16.8 14.0-18.0 - g/dl ?Hematocrit 48.3 42.0-52.0 - % ?Mean Corpuscular Volume 91.7 80.0-98.0 - fL ?Mean Corpuscular Hemoglobin 31.9 27.0-33.0 - pg ?Mean Corpuscular HGB Conc 34.8 31.0-36.0 - g/dl ?Red Cell Distribution Width 14.0 11.0-16.0 - % ?Platelet Count 198 160-4 00 - X10*3/uL ?Mean Platelet Volume 10.3 9.4-12.4 - fL ?Neutrophils Percent Auto 49.8 45-73 - % ?Imm Gran Pct Auto 0.3 0. 0-0.4 - % ?Lymphocytes Percent Auto 35.4 20-40 - % ?Monocytes Percent Auto 10.8 2-11 - % ?Eosinophils Percent Auto 3.2 0-4 - % ?Basophils Percent Auto 0.5 0-2 - % ?NRBC Pct Auto 0.0 0.0-0. 2 - /100WBC ?Neutrophils Absolute Auto 2.9 2.0-8.3 - x10*3/uL ?Imm Gran Abs Auto 0.02 0. 00-0.03 - X10*3/uL ?Lymphocytes Absolute Auto 2.1 1.2-4.9 - X10*3/uL ?Monocytes Absolute Auto 0.6 0.1-1.2 - X10*3/uL ?Eosinophils Absolute Auto 0.2 0.0-0.4 - X10*3/uL ?Basophils Absolute Auto 0.0 0.0-0.2 - X10*3/uL ?NRBC Abs Auto 0.000 0.0-0. 012 - X10*3/uL * Examination: ???General Examination: ?GENERAL APPEARANCE:?well developed, well nourished, in no acute distress.?HEAD:?normocephalic, atraumatic.?EYES:?pupils equal, round, reactive to light and accommodation, sclera non-icteric.?EARS:?normal.?ORAL CAVITY:?mucosa moist.?THROAT:?clear.?NECK/THYROID:?neck supple, full range of motion, no cervical lymphadenopathy, no bruits.?SKIN:?warm and dry, no suspicious lesions.?HEART:?regular rate and rhythm, S1, S2 normal, no murmurs.?LUNGS:?clear to auscultation bilaterally.?ABDOMEN:?soft, nontender, nondistended, bowel sounds present, normal, no organomegaly , no masses palpable.?RECTAL EXAM:?normal tone, no external hemorrhoids, no masses palpable, prostate normal, stool guaiac negative.?MALE GENITOURINARY:?circumcised, no penile lesions or discharge, no testicular mass, testes descended bilaterally.?EXTREMITIES:?no clubbing, cyanosis, or edema.?NEUROLOGIC:?nonfocal, motor strength normal upper and lower extremities, sensory exam intact.? Assessment: * Assessment: 1.?Annual physical exam - Z0 0.00 (Primary)?2.?Vertigo - R42?3.?History of basal cell cancer - Z85.828?4.?Hypercholesteremia - E78.00?5.?Colon cancer screening - Z12.11?6.?Depression screening - Z13.31? Plan: * Treatment: 2.?Vertigo? Notes: had only one episode, will continue to monitor.?? 3.?History of basal cell can cer? Notes: going for some moh's surgery.?? 4.?Hypercholesteremia? Notes: needs to get on diet, will continue to monitor.?? 5.?Colon cancer screening?LAB: Occult Blood, Stool, Guaiac ? Value Reference Range ?Occult Blood, Stool, Guaiac Neg Notes: guaiac negative.??6.?Depression screening? Notes: negative screen.?? * Procedure Codes:?15879 TEST FOR BLOOD, FECES * Follow Up:?1 Year * * Sign off status: Completed true * Provider:?Abilio Lloyd MD Date:?0 12/26/2023 Generated for Lashay junior/Neel/Ijeoma on:?10/08/2024 01:58 PM EST History and Physical Notes * HPI (History of Present Illness) Category Sub-Category Detail Notes Category Not es Symptom(s) patient is a 73 yo m,frank here for annual visit with review of recent labs and follow up of chronic issues. Depression Screening PHQ-9 Little inte rest or pleasure in doing things: Not at all Feeling down, depressed, or hopeless: No t at all Trouble falling or staying asleep, or sl eeping too much: Not at all Feeling tired or having little energy: N ot at all Poor appetite or overeating: Not at all Feeling bad about yourself o r that you are a failure, or have let yourself or your family down: Not at all Trouble concentrating on thi ngs, such as reading the newspaper or watching television: Not at all Moving or speaking so slowly that other people could have noticed; or the opposite, being so fidgety or restless that you have been moving around a lot more than usual: Not at all Thoughts that you would be b destin off or of hurting yourself in some way: Not at all Total Score: 0 Interpretation and Intervention Depression Lizzette lainez Findings: Negative Follow-Up for Depression: : review of PH Q-9 found negative result, no follow-up needed SDOH Questions SDOH Questions In the past year have you been worried about losing housing?: No In the past year have you or any family members you live with been unable to get any of the following when it was really needed? Check all that apply:: None Fall Risk History Have you had any falls with injury i n the past year?: No Have you had two or more falls in the st year?: No Communication Needs Communication Needs Does the patient have a hearing impairment: No Does the patient have a vision impairmen t?: Yes ?If yes, what is the vision impairment?: Glasses Does the patient have a cognition impair ment?: No Examination Category Sub-Category Detail Notes Category Not es General Examination GENERAL APPEARANCE: well dev eloped, well nourished, in no acute distress HEAD: normocephalic, atrau matic EYES: pupils equal, round, reactive to light and accommodation, sclera non- icteric EARS: normal THROAT: clear NECK/THYROID: neck supple, full ra nge of motion, no cervical lymphadenopathy, no bruits HEART: regular rate and rhy thm, S1, S2 normal, no murmurs LUNGS: clear to auscultatio n bilaterally ABDOMEN: soft, nontender, non distended, bowel sounds present, normal, no organomegaly , no masses palpable NEUROLOGIC: nonfocal, motor stre ngth normal upper and lower extremities, sensory exam intact SKIN: warm and dry, no shyann picious lesions EXTREMITIES: no clubbing, cyanosi s, or edema MALE GENITOURINARY: circumcised, no peni le lesions or discharge, no testicular mass, testes descended bilaterally RECTAL EXAM: normal tone, no exte rnal hemorrhoids, no masses palpable, prostate normal, stool guaiac negative ORAL CAVITY: mucosa moist
--- OUTSIDE RECORDS SUMMARY | 2024-10-08 13:59 | XMS_ITS | Patient Health Record ---
Author Organization Abilio Lloyd MD Address [address] [place], [place] [phone] Care Team Providers Care Letterer Name Role Phone Abilio Lloyd Primary Care Provider Allergies No Known Allergies Results Component Value Reference Range Notes Complete Blood Count Auto Di ff Reviewed date:11/13/2023 12:37:38 PM Interpretation: Performing Lab:[facility], [address] [place] [phone] Notes/Report: White Blood Count 5.9 4.8-10.8 X10*3/uL Red Blood Count 5.27 4.60-5.80 X10*6/uL Hemoglobin 16.8 14.0-18.0 g/dl Hematocrit 48.3 42.0-52.0 % Mean Corpuscular Volume 91.7 80.0-98.0 fL Mean Corpuscular Hemoglobin 31.9 27.0-33.0 pg Mean Corpuscular HGB Conc 34.8 31.0-36.0 g/dl Red Cell Distribution Width 14.0 11.0-16.0 % Platelet Count 198 160-400 X10*3/uL Mean Platelet Volume 10.3 9.4-12.4 fL Neutrophils Percent Auto 49.8 45-73 % Imm Gran Pct Auto 0.3 0.0-0.4 % Lymphocytes Percent Auto 35.4 20-40 % Monocytes Percent Auto 10.8 2-11 % Eosinophils Percent Auto 3.2 0-4 % Basophils Percent Auto 0.5 0-2 % NRBC Pct Auto 0.0 0.0-0.2 /100WBC Neutrophils Absolute Auto 2.9 2.0-8.3 x10*3/u L Imm Gran Abs Auto 0.02 0.00-0.03 X10*3/uL Lymphocytes Absolute Auto 2.1 1.2-4.9 X10*3/u L Monocytes Absolute Auto 0.6 0.1-1.2 X10*3/uL Eosinophils Absolute Auto 0.2 0.0-0.4 X10*3/u L Basophils Absolute Auto 0.0 0.0-0.2 X10*3/uL NRBC Abs Auto 0.000 0.0-0.012 X10*3/uL Comprehensive [place]. Panel Fa st Reviewed date:11/12/2023 08:47:36 AM Interpretation: Performing Lab:[facility], [address] [place] [phone] Notes/Report: Sodium 138 135-145 mmol/L Potassium 3.7 3.3-5.1 mmol/L Chloride 104 96-108 mmol/L Carbon Dioxide 26 22-29 mmol/L Anion Gap 12 12-20 Blood Urea Nitrogen 12 9-16 mg/dL Creatinine 1.01 0.5-1.4 mg/dL Estimated Glomerular Filt Rate > 60 NOTE: For -Guamanian individuals, multiply the result by 1.210. Chronic Kidney Disease: Estimated GFR < 60 mL/min/1.73m2 Severe Kidney Disease: Estimated GFR < 15 mL/min/1.73m2 Glucose Fasting 87 60-99 mg/dL Calcium 9.3 8.4-10.2 mg/dL Bilirubin Total 0.7 0.0-1.0 mg/dL Aspartate Amino Transferase 34 5-37 U/L Alanine Aminotransferase 29 0-40 U/L Total Protein 7.0 6.5-8.0 g/dL Albumin Level 4.2 3.5-5.0 g/dL Alkaline Phosphatase 62 39-117 U/L Lipid Panel Reviewed date:11/12/2023 08:47:15 AM Interpretation: Performing Lab:[facility], [address] [place] [phone] Notes/Report: Triglycerides 104 <150 mg/dL Desirable Triglyceride: less than 150 mg/dL Borderline High Triglyceride 150-199 mg/dL High Triglyceride: 200-499 mg/dL Very High Triglyceride: greater than or equal to 5OO mg/dL Cholesterol 230 <200 mg/dL Desirable Cholesterol: less than 200 mg/dL Borderline High Cholesterol: 200-239 mg/dL High Cholesterol: greater than 239 mg/dL LDL Cholesterol Calculated 153 <100 mg/dL Desirable LDL: less than 100 mg/dL Near Optimal/Above Optimal LDL: 110-129 mg/dL Borderline High LDL: 130-159 mg/dL High LDL: 160-189 mg/dL Very High LDL: greater than or equal to 190 mg/dL HDL Cholesterol 57 >40 mg/dL Desirable HDL: greater than 40 mg/dL Note: This HDL assay may give artificially low results in patients with liver disease. PSA,Total (Free>4and<10) Reviewed date:11/12/2023 08:47:46 AM Interpretation: Performing Lab:[facility], [address] [place] [phone] Notes/Report: PSA,Total (Free>4and<10) 0.57 0.00-4.00 ng/mL A Free PSA was not performed: The percentage of Free PSA can be used to enhance the differentiation of prostate cancer from benign prostatic disease in subjects whose PSA levels are between 4.0 and 10.0 ng/mL. For subjects whose PSA levels are below 4.0 or above 10.0 ng/mL, the risk of prostate cancer is determined on the basis of the PSA alone. Therefore the % Free PSA is recommended only for those subjects whose PSA levels are between 4.0 and 10.0 ng/mL. PSA methodology: Zuleta Alinity i Chemiluminescent Microparticle Immunoassay (CMIA) UA ClnCatch+Micro w/rflx Cul t Reviewed date:11/13/2023 12:37:21 PM Interpretation: Performing Lab:[facility], [address] [facility] [address], [place] [address] Notes/Report: Urine, Clean Catch Color Urine Yellow Appearance Urine Clear PH 7.0 5.0-9.0 Glucose Urine UA Negative Negative mg/dL Urine Blood Negative Negative Specific [place] - Urine 1.010 1.005-1.025 Urine Protein Negative Neg-Trace mg/dL Urine Ketones Negative Negative mg/dL Nitrite Urine Negative Negative Leukocyte Esterase Urine Negative Negative RBC Urine 0-2 0-2 /HPF WBC Urine 0-5 0-5 /HPF Squamous Epithelial Cell Urine 0-2 0-2 /HPF Bacteria Urine None Seen None Seen Hyaline Casts Urine 0-2 0-2 /LPF Occult Blood, Stool, Guaiac Reviewed date:12/26/2023 02:16:03 PM Interpretation: Performing Lab: Notes/Report: Occult Blood, Stool, Guaiac Neg Reason For Referral No Information Medications Medication SIG (Take, Route, Frequency, Duration) [...] a day for 10 days 09/17/2019 Not-Taking Immunizations Vaccine Route Administration Date Status Comme nts Influenza High Dose Unknown 06/03/2019 Administered pt wasgiven the vaccine at [facility]. PPSV23 (Pnemovax) IM Intramuscular 08/20/2018 Administered pt had the vaccine at [facility]. Prevnar 13 IM Intramuscular 09/04/2017 Administered pt had the vaccine at [facility]. Shingrix IM Intramuscular 12/04/2017 Administered pt was given the vaccine at [facility]. Shingrix IM Intramuscular 04/05/2018 Administered pt was given the vaccine at [facility] on [facility]. Influenza High Dose Unknown 05/12/2020 Administered [facility] TDaP Unknown 08/25/[address] [facility] SARS-COV-2 Pfizer Unknown 09/09/2020 Administered SARS-COV-2 Pfizer Unknown 09/30/2020 Administered SARS-COV-2 Pfizer Unknown 05/09/2021 Administered Fluarix Quadrivalent Unknown 04/13/2021 Administered Influenza High Dose IM Intramuscular 05/18/2023 Administer ed Social History Tobacco Use: Social History Observation [...] ast year? No Points 0 Interpretation Negative Problems Problem Type SNOMED Code ICD Code Onset Dates Problem Status W/U Status Risk Notes Problem 316831827 History of basal cell cancer (Z85.828) Active confirmed Problem 934490072 Cervical disc di sease (M50.90) Active confirmed Problem 87734423 Hypercholesterem ia (E78.00) Active confirmed Problem 20474760 Hearing loss, unspecified hearing loss type, unspecified laterality (H91.90) Active confirmed Vital Signs Blood pressure diastolic 60 mm Hg 12/26/2023 armond ght is up 12 pounds since 05-29-24 Height 75 in 12/26/2023 weight is up 12 pounds since 05-29-24 Blood pressure systolic 132 mm Hg 12/26/2023 weig ht is up 12 pounds since 05-29-24 Weight 220 lbs 12/26/2023 weight is up 12 pounds since 05-29-24 BMI 27.50 kg/m2 12/26/2023 weight is up 12 pounds since 05-29-24 Encounters Encounter Location Date Provider Diagnosis Abilio Lloyd MD [address] [place] [address] Drive [address] [place] [phone] 12/26/2023 Abilio Lloyd Vertigo R42 ; Annual physical exam Z00.00 ; History of basal cell cancer Z85.828 ; Hypercholesteremia E78.00 ; Colon cancer screening Z12.11 and Depression screening Z13.31 Abilio Lloyd MD [address] [place] [address] Drive [address] [place] [phone] 11/10/2023 Abilio Lloyd Blood tests for rout ine general physical examination Z00.00 and Hypercholesteremia E78.00 Assessments Encounter Date Diagnosis (ICD Code) Assessment Notes Treatment Notes Treatment Clinical Notes Section Notes 12/26/2023 Vertigo (ICD-10 - R42) had o nly one episode, will continue to monitor 12/26/2023 Annual physical exam (ICD-10 - Z00.00) labs reviewed and discussed with patient 11/10/2023 Blood tests for routine general physical examination (ICD-10 - Z00.00) 11/10/2023 Hypercholesteremia (ICD-10 - E78.00) 12/26/2023 History of basal endy l cancer (ICD-10 - Z85.828) going for some moh's surgery 12/26/2023 Hypercholesteremia (ICD-10 - E78.00) needs to get on diet, will continue to monitor 12/26/2023 Colon cancer screeni ng (ICD-10 - Z12.11) guaiac negative 12/26/2023 Depression screening (ICD-10 - Z13.31) negative screen Plan Of Treatment Next Appt Details Provider Name:Abilio Castillo ier, 12/23/2024 07:30:00 AM, [address] [place] [address], [address], [phone], Provider Name:Abilio Castillo ier, 12/30/2024 10:30:00 AM, [address] [place] [address], [address], [phone], Insurance Providers Payer Name Payer Address Payer Phone Subscriber Number Group Number Insured Name Patient Relationship to Insured Coverage Start Date Coverage End Date [facility] [address] [place] [phone] [id number] Alen Ramirez Self - patient is the insured Medical (General) History Medical History History ICD Code 11/19/2014 Dr Avalos repeat in 10 years; 11/04/[address] Avalos - repeat 1 year; colonoscopy 10/14/20 - repeat [address] Avalos
--- OUTSIDE RECORDS SUMMARY | 2024-10-08 13:59 | XMS_ITS ---
Author Organization Abilio Lloyd MD Address [address] [place] [phone] Care Team Providers Care Meat Seafood Associate Name Role Phone Abilio Lloyd Primary Care Provider Results Component Value Reference Range Notes Complete Blood Count Auto Di ff Reviewed date:11/13/2023 12:37:38 PM Interpretation: Performing Lab:[facility], [address] [place] [phone] Notes/Report: White Blood Count 5.9 4.8-10.8 X10*3/uL [...] NRBC Abs Auto 0.000 0.0-0.012 X10*3/uL Comprehensive [place]. Panel Fa st Reviewed date:11/12/2023 08:47:36 AM Interpretation: Performing Lab:[facility], [address] [place] [phone] Notes/Report: Sodium 138 135-145 mmol/L Potassium 3.7 3.3-5.1 mmol/L Chloride 104 96-108 mmol/L Carbon Dioxide 26 22-29 mmol/L Anion Gap 12 12-20 Blood Urea Nitrogen 12 9-16 mg/dL Creatinine 1.01 0.5-1.4 mg/dL Estimated Glomerular Filt Rate > 60 NOTE: For -Swazi individuals, multiply the result by 1.210. Chronic [...] Panel Reviewed date:11/12/2023 08:47:15 AM Interpretation: Performing Lab:[facility], [address] [place] [phone] Notes/Report: Triglycerides 104 <150 mg/dL Desirable Triglyceride: [...] (Free>4and<10) Reviewed date:11/12/2023 08:47:46 AM Interpretation: Performing Lab:[facility], [address] [place] [phone] Notes/Report: PSA,Total (Free>4and<10) 0.57 0.00-4.00 ng/mL A [...] t Reviewed date:11/13/2023 12:37:21 PM Interpretation: Performing Lab:[facility], [address] [place] [address] Notes/Report: Urine, Clean Catch Color Urine Yellow Appearance Urine Clear PH 7.0 5.0-9.0 Glucose Urine UA Negative Negative mg/dL Urine Blood Negative Negative Specific [place] - Urine 1.010 1.005-1.025 Urine Protein Negative Neg-Trace mg/dL Urine Ketones Negative Negative mg/dL Nitrite Urine Negative Negative Leukocyte Esterase Urine Negative Negative RBC Urine 0-2 0-2 /HPF WBC Urine 0-5 0-5 /HPF Squamous Epithelial Cell Urine 0-2 0-2 /HPF Bacteria Urine None Seen None Seen Hyaline Casts Urine 0-2 0-2 /LPF REASON FOR VISIT yearly labs Encounters Encounter Location Date Provider Diagnosis Abilio Lloyd MD [address] [place] [phone] 11/10/2023 Abilio Lloyd Blood tests for rout ine general physical examination Z00.00 and Hypercholesteremia E78.00 Assessments Encounter Date Diagnosis (ICD Code) Assessment Notes Treatment Notes Treatment Clinical Notes Section Notes 11/10/2023 Blood tests for routine general physical examination (ICD-10 - Z00.00) 11/10/2023 Hypercholesteremia (ICD-10 - E78.00) Plan Of Treatment Next Appt Details Provider Name:Abilio gonsalez, 12/23/2024 07:30:00 AM, [address] [place] [address], [address], [phone], Provider Name:Abilio gonsalez, 12/30/2024 10:30:00 AM, [address] [place] [address], [address], [phone], Progress Notes * Alen HIDALGO BDOB:07/1951 (73 yo M)Acc No.[id number]:11/10/2023 Progress Note Patient:?Alen HIDALGO Provider:?Abilio Lloyd MD :1950???Age:72 Y???Sex:Male Agus e:11/10/2023 Address:[address], [place] , [id number] Subjective: * Chief Complaints: * ???1. Yearly labs. * Medical History:? Objective: * Vitals:? Assessment: * Assessment: 1.?Blood tests for routine g eneral physical examination - Z00.00 (Primary)???2.?Hypercholesteremia - E78.00??? Plan: * Treatment: 2.?Hypercholesteremia?LAB: Complete Blood Count Auto Diff (Collection Date & Time - 11/10/2023 07:15 AM) ?LAB: Comprehensive [place]. Panel Fast (Collection Date & Time - 11/10/2023 07:15 AM) ?LAB: Lipid Panel (Collection Date & Time - 11/10/2023 07:15 AM) ?LAB: PSA,Total (Free>4and<10) (Collection Date & Time - 11/10/2023 07:15 AM) ?LAB: UA ClnCatch+Micro w/rflx Cult (Collection Date & Time - 11/10/2023 07:15 AM) * Procedure Codes:?43700 VENIP UNCT, ROUTINE* * * The named appointment provid er may or may not be the originator of this progress note, and it is not deemed complete until electronically signed by the appointment provider. Sign off status: Pending * Provider:?Abilio lLoyd MD Date:?0 11/10/2023 Generated for Lashay junior/Neel/eTrozsmitting on:?10/08/2024 01:58 PM EST
[2024-11-06 07:19] VITALS: BMI 25.5
[2024-11-06 07:31] VITALS: BP 126/79; PULSE 75; RESP 20; TEMP 36.6; O2SAT 96
[2024-11-06] MEDS: Lactated Ringers 1,000 ML 100 ML IVCONT (07:40)
--- NOTE | 2024-11-06 08:11 | HO.ANESPROP2 ---
HPI - Anesthesia Eval Consult details Narrative: for colonoscopy PMFSH Active Problems Active Problems: All Active Problems Dupuytren's contracture of right hand (Acute) Sprain of metacarpophalangeal joint of right middle finger (Acute) Past Medical History Medical History (Updated 11/04/24 @ 14:12 by Amy Iqbal, MAKENNA) History of Mohs micrographic surgery for skin cancer (2023) Family History Family history of problems with anesthesia: No Surgical History Surgical History (Updated 11/04/24 @ 14:12 by Amy Iqbal RN) Hx of colonoscopy (2019) S/P skin biopsy H/O basal cell carcinoma excision History of Problems with Anesthesia: No Social History Social History Patient Tobacco Use Status: Never used Tobacco Use of substances other than those prescribed or required for medical reasons: No Are you DNR?: No Advance Directives: No Advance Directives Information Provided: Yes Meds Allergies Allergy/AdvReac Type Severity Reaction Status Date / Time No Known Allergies Allergy Verified 11/06/24 07:18 [No Known Allergies*] Active Medications: Current Medications Lactated Ringer's (Lr) 1,000 mls @ 100 mls/hr IVCONT .Q10H SEE Last Admin: 11/06/24 07:40 Dose: 100 mls/hr Sodium Biphosphate/Sodium Phosphate (Sodium Phosphate,[place]-Dibasic 133 Ml Enema) 133 ml AL ONCE PRN PRN Reason: Poor Colonoscopy Prep Results Home Medications ?Medication ?Instructions ?Recorded ?Confirmed ?Last Taken ?Type colchicine 0.6 mg tablet 0.6 mg PO BID 03/04/22 10/30/24 History Co Q-10 11/04/24 10/30/24 History Fish Oil 11/04/24 10/30/24 History calcium 11/04/24 10/30/24 History magnesium 11/04/24 11/04/24 10/30/24 History multivitamin 1 tab PO DAILY 11/04/24 11/04/24 10/30/24 History Exam Height,Weight and Vital Signs: Height 6 ft 5 in Weight 97.7 kg Last Vital Signs Temp 97.8 F 11/06/24 07:31 Pulse 75 11/06/24 07:31 Resp 20 11/06/24 07:31 BP 126/79 11/06/24 07:31 Pulse Ox 96 11/06/24 07:31 O2 Del Method Room Air 11/06/24 07:31 Airway Mallampati Class: II TM Dist: >3cm Neck ROM: Full Loose/Missing/Broken Teeth: No Heart: ok Lungs: ok Assessment and Plan Assessment Anesthesia Assessment: Anesthesia Plan Discussed and Chart Reviewed Final Anesthetic Review Family History of Problems with Anesthesia: No History of Problems with Anesthesia: No NPO: Yes ASA Class: II Final Preanesthetic Review: No Changes in Pt Med Stat, Meds/Allgs Chart Reviewed, Consent Obtained/Reviewed and Anes Risks/Benef Reviewed Patient Risk: Low Procedure Risk: Low Anesthetic Plan Anesthetic Plan: MAC: and Agree w/ Assess. and Plan Disposition: Standard PACU
[2024-11-06 09:11] VITALS: BP 103/49; PULSE 51; RESP 16; TEMP 36.6; O2SAT 94
--- NOTE | 2024-11-06 09:11 | P.BOP_ITS ---
Brief Operative Note Date of Service: 11/06/24 Pre-op diagnosis: Screening Post-op diagnosis: other (Polyps) Procedure: Colonoscopy to the cecum with bx/removal of polyp, and cold snare polypectomy x 1 Surgeon: Jorge A Avalos MD Anesthesia: MAC Was an Lining Strap Closer used for this Procedure?: No Estimated blood loss (mL): 2.0 Pathology: other (A. Cecal polyp B. Ascending colon polyp) Condition: stable Disposition: PACU
[2024-11-06 09:21] VITALS: BP 113/48; PULSE 55; RESP 16; TEMP 36.6; O2SAT 98
--- NOTE | 2024-11-06 09:43 | OP_ITS ---
DATE OF SERVICE: 11/06/2024 SURGEON: Jorge A Avalos MD INDICATIONS: The patient presents for evaluation of personal history of tubular adenoma of the colon and colorectal cancer screening. Full consent has been obtained from him for this, including risks of bleeding and perforation. PREOPERATIVE DIAGNOSIS: POSTOPERATIVE DIAGNOSIS: PROCEDURE PERFORMED: Colonoscopy to the cecum with biopsy and removal of polyp, and cold snare polypectomy x1. ESTIMATED BLOOD LOSS: COMPLICATIONS: ANESTHESIA: Medication used monitored anesthesia care. ASSISTANTS: SPECIMENS: PREOPERATIVE DIAGNOSES: Colorectal cancer screening and personal history of tubular adenoma of the colon. POSTOPERATIVE DIAGNOSES: Colorectal cancer screening and personal history of tubular adenoma of the colon, colon polyps, diverticulosis, and internal hemorrhoids. DESCRIPTION OF PROCEDURE: The patient was placed in left lateral decubitus position. The digital rectal exam revealed no abnormalities. The Slack video pediatric colonoscope was entered into the rectum and advanced easily to the cecum. Once in the cecum, I did identify cecal pouch with appendiceal orifice and a normal-appearing ileocecal valve. There was transillumination of light deep in the right lower quadrant. The entire cecum was well visualized. Just adjacent to the appendiceal orifice was an approximately 4 mm polyp, which was biopsied and completely removed with cold biopsy forceps. The remainder of the cecum appeared normal. The scope was then slowly withdrawn assessing all mucosal surfaces carefully. Preparation was excellent. In the ascending colon was an approximately 6 mm polyp, which was removed by cold snare polypectomy and recovered by suction. The polypectomy site appeared clean, without any sign of residual polyp nor significant bleeding. I did not visualize any other polyps, colitis, nor angiodysplasia. There was a mild amount of sigmoid diverticulosis. In the rectum, scope was retroflexed visualizing internal hemorrhoids, but no other pathology. The rectal mucosa appeared normal. Scope was straightened and withdrawn from the patient. He tolerated the procedure well and was returned to the recovery area in stable condition. IMPRESSION: 1. Colon polyps. 2. Diverticulosis. 3. Internal hemorrhoids. PLAN: The results of the biopsy will be checked. I would recommend a repeat colonoscopy in 5 years for further screening, although at that point he would be just about 78 years old and we would need to take his clinical condition to account. He was advised not to use any aspirin, fish oil, nor NSAIDs for 1 week. MD JOEL Mcallister/CORBY / [phone]
== END 2024-11-06 09:41 | disposition home or self-care (01) ==
PROVIDERS: PCP Internal Medicine; Visit Provider Internal Medicine
PROC: 0DJD8ZZ Inspection of Lower Intestinal Tract, Via Natural or Artificial Opening Endoscopic (ICD-10-PCS; CPT 45378; principal; 2024-11-06 08:20)
DX: Z12.11 Encounter for screening for malignant neoplasm of colon (principal); Z86.0101 Personal history of adenomatous and serrated colon polyps; D12.2 Benign neoplasm of ascending colon; K63.5 Polyp of colon; K57.30 Diverticulosis of large intestine without perforation or abscess without bleeding; K64.8 Other hemorrhoids; Z85.828 Personal history of other malignant neoplasm of skin; Z79.899 Other long term (current) drug therapy; Z98.890 Other specified postprocedural states
CPT/HCPCS: 45385; 45380; 88305; J2003; J2704

== ENCOUNTER 2024-12-23 12:00 | Outpatient (REF) | payer OTHER, SELFPAY ==
[2024-12-23 12:03] LABS: MANUAL DIFF FLAG NO
[2024-12-23 12:07] LABS: Appearance Urine Clear; Color Urine Yellow; Glucose Urine UA Negative (Negative); Leukocyte Esterase Urine Negative (Negative); Nitrite Urine Negative (Negative); Specific Gravity - Urine <= 1.005 (1.005-1.025); Urine Blood Negative (Negative); Urine Ketones Negative (Negative); Urine Protein Negative (Neg-Trace)
[2024-12-23 12:08] LABS: Basophils Absolute Auto 0.1 X10*3/uL (0.0-0.2); Basophils Percent Auto 0.8 % (0-2); Eosinophils Absolute Auto 0.2 X10*3/uL (0.0-0.4); Eosinophils Percent Auto 3.1 % (0-4); Hematocrit 49.1 % (42.0-52.0); Hemoglobin 17.1 g/dl (14.0-18.0); Imm Gran Abs Auto 0.01 X10*3/uL (0.00-0.03); Imm Gran Pct Auto 0.2 % (0.0-0.4); Lymphocytes Absolute Auto 2.5 X10*3/uL (1.2-4.9); Lymphocytes Percent Auto 41.8 % (20-40); Mean Corpuscular HGB Conc 34.8 g/dl (31.0-36.0); Mean Corpuscular Hemoglobin 32.1 pg (27.0-33.0); Mean Corpuscular Volume 92.1 fL (80.0-98.0); Mean Platelet Volume 10.5 fL (9.4-12.4); Monocytes Absolute Auto 0.7 X10*3/uL (0.1-1.2); Monocytes Percent Auto 11.2 % (2-11); Neutrophils Absolute Auto 2.6 x10*3/uL (2.0-8.3); Neutrophils Percent Auto 42.9 % (45-73); Platelet Count 225 X10*3/uL (160-400); Red Blood Count 5.33 X10*6/uL (4.60-5.80); Red Cell Distribution Width 14.4 % (11.0-16.0); White Blood Count 6.1 X10*3/uL (4.8-10.8)
[2024-12-23 12:09] LABS: Bacteria Urine None Seen (None Seen); Hyaline Casts Urine 0-2 /LPF (0-2); RBC Urine 0-2 /HPF (0-2); Squamous Epithelial Cell Urine 0-2 /HPF (0-2); WBC Urine 0-5 /HPF (0-5)
--- OUTSIDE RECORDS SUMMARY | 2024-12-23 12:35 | XMS_ITS ---
Author Organization [facility] Address [address] [place] [address] Care Team Providers Care Lead Technical Architect Name Role Phone Abilio Lloyd MD Primary Care Provider Jorge A Anton [phone] REASON FOR VISIT screening, hx polyps Encounters Encounter Location Date Provider Diagnosis [facility] [place] [facility] [address] [facility] [place] [phone] 11/06/2024 Jorge A Avalos Colon cancer scree migel Z12.11 ; Personal history of colonic polyps Z86.0100 ; Colon polyps K63.5 and Diverticulosis of large intestine without perforation or abscess without bleeding K57.30 Assessments Encounter Date Diagnosis (ICD Code) Assessment Notes Treatment Notes Treatment Clinical Notes Section Notes 11/06/2024 Colon cancer screening (ICD-10 - Z12.11) 11/06/2024 Personal history of colonic polyps (ICD-10 - Z86.0100) 11/06/2024 Colon polyps (ICD-10 - K63.5) 11/06/2024 Diverticulosis of large intestine without perforation or abscess without bleeding (ICD-10 - K57.30) Plan Of Treatment No Information Progress Notes * NAMITA HIDALGOOB:[birth year] (74 yo M)Acc No.[id number]:11/06/2024 COLON WITH MAC Patient:?NIKKO HIDALGO Provider:?Jorge A Avalos MD :1950???Age:73 Y???Sex:Male Agus e:11/06/2024 Address:[address], [place] , [id number] Pcp:Abilio Lloyd MD Subjective: * Chief Complaints: * ???1. Screening, hx polyps. * Medical History:? Objective: * Vitals:? Assessment: * Assessment: 1.?Colon cancer screening - Z12.11 (Primary)???2.?Personal history of colonic polyps - Z86.0100???3.?Colon polyps - K63.5???4.?Diverticulosis of large intestine without perforation or abscess without bleeding - K57.30??? Plan: * Treatment: * Procedure Codes:?49004 LESIO N REMOVAL COLONOSCOPY, 74508 COLONOSCOPY AND BIOPSY, Modifiers: 57 , 0529F INTRVL 3+YRS PTS CLNSCP DOCD, 0528F RCMND FLW-UP 10 YRS DOCD, Modifiers: 1P * * The named appointment provid er may or may not be the originator of this progress note, and it is not deemed complete until electronically signed by the appointment provider. Sign off status: Pending * Provider:?Jorge A Avalos MD Date:? 025 Generated for Lashay junior/Neel/eTransmitting on:?12/23/2024 12:35 PM EDT
--- OUTSIDE RECORDS SUMMARY | 2024-12-23 12:35 | XMS_ITS ---
Author Organization Abilio Lloyd MD Address [address] [place] [phone] Care Team Providers Care It Risk And Assurance Senior Manager Name Role Phone Abilio Lloyd Primary Care Provider Results Component Value Reference Range Notes UA ClnCatch+Micro w/rflx Cul t (Not yet reviewed by provider) Interpretation: Performing Lab:[facility], [address] [place] [phone] Notes/Report: Urine, Clean Catch Color Urine Yellow Appearance Urine Clear PH 7.0 5.0-9.0 Glucose Urine UA Negative Negative mg/dL Urine Blood Negative Negative Specific [place] - Urine <= 1.005 1.005-1.025 Urine Protein Negative Neg-Trace mg/dL Urine Ketones Negative Negative mg/dL Nitrite Urine Negative Negative Leukocyte Esterase Urine Negative Negative RBC Urine 0-2 0-2 /HPF WBC Urine 0-5 0-5 /HPF Squamous Epithelial Cell Urine 0-2 0-2 /HPF Bacteria Urine None Seen None Seen Hyaline Casts Urine 0-2 0-2 /LPF Complete Blood Count Auto Di ff Reviewed date:12/23/2024 12:34:02 PM Interpretation: Performing Lab:[facility], [address] [place] [phone] Notes/Report: White Blood Count 6.1 4.8-10.8 X10*3/uL Red Blood Count 5.33 4.60-5.80 X10*6/uL Hemoglobin 17.1 14.0-18.0 g/dl Hematocrit 49.1 42.0-52.0 % Mean Corpuscular Volume 92.1 80.0-98.0 fL Mean Corpuscular Hemoglobin 32.1 27.0-33.0 pg Mean Corpuscular HGB Conc 34.8 31.0-36.0 g/dl Red Cell Distribution Width 14.4 11.0-16.0 % Platelet Count 225 160-400 X10*3/uL Mean Platelet Volume 10.5 9.4-12.4 fL Neutrophils Percent Auto 42.9 45-73 % Imm Gran Pct Auto 0.2 0.0-0.4 % Lymphocytes Percent Auto 41.8 20-40 % Monocytes Percent Auto 11.2 2-11 % Eosinophils Percent Auto 3.1 0-4 % Basophils Percent Auto 0.8 0-2 % NRBC Pct Auto 0.0 0.0-0.2 /100WBC Neutrophils Absolute Auto 2.6 2.0-8.3 x10*3/u L Imm Gran Abs Auto 0.01 0.00-0.03 X10*3/uL Lymphocytes Absolute Auto 2.5 1.2-4.9 X10*3/u L Monocytes Absolute Auto 0.7 0.1-1.2 X10*3/uL Eosinophils Absolute Auto 0.2 0.0-0.4 X10*3/u L Basophils Absolute Auto 0.1 0.0-0.2 X10*3/uL NRBC Abs Auto 0.000 0.0-0.012 X10*3/uL REASON FOR VISIT FASTING LABS Encounters Encounter Location Date Provider Diagnosis Abilio Lloyd MD [address] [place] [address] [address] [place], [place] [phone] 12/23/2024 Abilio Lloyd Blood tests for rout ine general physical examination Z00.00 and Hypercholesteremia E78.00 Assessments Encounter Date Diagnosis (ICD Code) Assessment Notes Treatment Notes Treatment Clinical Notes Section Notes 12/23/2024 Blood tests for routine general physical examination (ICD-10 - Z00.00) 12/23/2024 Hypercholesteremia (ICD-10 - E78.00) Plan Of Treatment Pending Test Test Name Order Date Comprehensive [place]. Panel Fast Lipid Panel 12/23/2024 PSA,Total (Free>4and<10) 12/23/2024 UA ClnCatch+Micro w/rflx Cult 12/23/2024 Next Appt Details Provider Name:Abilio Castillo ier, 12/30/2024 10:30:00 AM, [address], [address], [place], [phone], Progress Notes * Alen HIDALGO BDOB:07/1951 (74 yo M)Acc No.[id number]:12/23/2024 Progress Note Patient:?Alen HIDALGO B Provider:?Abilio Lloyd MD :1950???Age:74 Y???Sex:Male Agus e:12/23/2024 Address:[address] [place], [id number] Subjective: * Chief Complaints: * ???1. FASTING LABS. * Medical History:? Objective: * Vitals:? Assessment: * Assessment: 1.?Blood tests for routine g eneral physical examination - Z00.00 (Primary)???2.?Hypercholesteremia - E78.00??? Plan: * Treatment: 2.?Hypercholesteremia?LAB: Comprehensive [place]. Panel Fast ?LAB: Lipid Panel ?LAB: PSA,Total (Free>4and<10) ?LAB: UA ClnCatch+Micro w/rflx Cult (Collection Date & Time - 12/23/2024 07:30 AM) ?LAB: Complete Blood Count Auto Diff (Collection Date & Time - 12/23/2024 07:30 AM) * Procedure Codes:?93636 VENIP UNCT, ROUTINE* * * The named appointment provid er may or may not be the originator of this progress note, and it is not deemed complete until electronically signed by the appointment provider. Sign off status: Pending * Provider:?Abilio Lloyd MD Date:?0 12/23/2024 Generated for Lashay junior/Neel/Martinitting on:?12/23/2024 12:35 PM EDT
--- OUTSIDE RECORDS SUMMARY | 2024-12-23 12:36 | XMS_ITS ---
Author Organization [facility] Address [address] [place] [address] Care Team Providers Care Dessert Cup Machine Feeder Name Role Phone Abilio Lloyd MD Primary Care Provider Jorge A Anton [phone] Allergies No Known Allergies REASON FOR VISIT Patient presents today for a colon screening Medications Medication SIG (Take, Route, Frequency, Duration) Notes Start Date End Date Status Fish Oil Active Calcium Active Co Q-10 Active Multivitamin Active Magnesium Active Social History Alcohol Screen Question Answer Notes Did you have a drink containing alcohol in the p ast year? No Points 0 Interpretation Negative Section Notes: Nonsmoker; no sig alcohol Vital Signs Blood pressure systolic 00 mm Hg 07/16/20 24 Blood pressure diastolic 00 mm Hg 024 Height 76 in 07/16/2024 Weight 219 lbs 07/16/2024 BMI 26.65 kg/m2 07/16/2024 Encounters Encounter Location Date Provider Diagnosis [facility] [address] [place] [phone] 07/16/2024 Jorge A Avalos Encounter for screen ing for malignant neoplasm of colon Z12.11 ; Preprocedural examination Z01.818 and History of adenomatous polyp of colon Z86.010 Assessments Encounter Date Diagnosis (ICD Code) Assessment Notes Treatment Notes Treatment Clinical Notes Section Notes 07/16/2024 Encounter for screening for malignant neoplasm of colon (ICD-10 - Z12.11) Stop fish oil for 1 week before the colonoscopy Overall, Alen appears quite well. Given his age, excellent clinical appearance, personal history of tubular adenomas of the colon including a large polyp removed in 2019, and his last colonoscopy approaching the four-year jeanne, I did recommend a followup colonoscopy for further screening purposes. We did review the rationale for this regard to colon cancer prevention. Full consent was obtained for this, including risks of bleeding and perforation. The procedure will be done with monitored anesthesia care. He was given the below instructions regarding adjustment of his medications for the procedure. Alen was comfortable with this plan. Thank you again for allowing me to participate in Alen's care. I shall continue to keep you advised of his progress. 07/16/2024 Preprocedural examination (ICD-10 - Z01.818) Overall, Alen appears quite well. Given his age, excellent clinical appearance, personal history of tubular adenomas of the colon including a large polyp removed in 2019, and his last colonoscopy approaching the four-year jeanne, I did recommend a followup colonoscopy for further screening purposes. We did review the rationale for this regard to colon cancer prevention. Full consent was obtained for this, including risks of bleeding and perforation. The procedure will be done with monitored anesthesia care. He was given the below instructions regarding adjustment of his medications for the procedure. Alen was comfortable with this plan. Thank you again for allowing me to participate in Alen's care. I shall continue to keep you advised of his progress. 07/16/2024 History of adenomatous polyp of colon (ICD-10 - Z86.010) Overall, Alen appears quite well. Given his age, excellent clinical appearance, personal history of tubular adenomas of the colon including a large polyp removed in 2019, and his last colonoscopy approaching the four-year jeanne, I did recommend a followup colonoscopy for further screening purposes. We did review the rationale for this regard to colon cancer prevention. Full consent was obtained for this, including risks of bleeding and perforation. The procedure will be done with monitored anesthesia care. He was given the below instructions regarding adjustment of his medications for the procedure. Alen was comfortable with this plan. Thank you again for allowing me to participate in Alen's care. I shall continue to keep you advised of his progress. Plan Of Treatment Treatment Notes Assessment Notes Encounter for screening for malignant neoplasm of colon Stop fish oil for 1 week before the colonoscopy Future Test Test Name Order Date COLONOSCOPY 07/16/2024 Next Appt Details Follow Up: prn, Reason: Progress Notes * ELAINE HIDALGO:[birth year] (73 yo M)Acc No.[id number]:07/16/2024 Progress Notes Patient:ALEN ABBASI Provider:?Jorge A Avalos MD :1950???Age:73 Y???Sex:Male Agus e:07/16/2024 Address:[address] [place] [address] , [id number] Pcp:Abilio Lloyd MD Subjective: * Chief Complaints: * ???Patient presents today fo r a colon screening * HPI: ???incontinence:? I saw Alen in the office today for evaluation of his personal history of tubular adenomas of the colon and need for colorectal cancer screening. ?I last saw Alen in October of 2020, at which time he underwent a followup colonoscopy with removal of a small tubular adenoma. He presently feels well. He enjoys a good appetite without any significant heartburn or dysphagia. His bowel movements are regular and without any signs of bleeding. He denies abdominal pain, jaundice, nor unintentional weight loss. He denies any known family history of colon cancer. ?Laboratories in October revealed a normal CBC, chemistries and renal function, and LFTs. * ROS:?General/Constitutional:?Change in appetite?denies.?Chills?denies.?Fatigue?denies.?Ophthalmologic:?Comments?all negative.?ENT:?Comments?all negative.?Respiratory:?hemoptysis?denies.?Cough?denies.?Cardiovascular:?Chest pain?denies.?Orthopnea?denies.?Gastrointestinal:?Comments?See HPI for details.?Genitourinary:?Hematuria?denies.?Dysuria?denies.?Musculoskeletal:?Painful joints?denies.?Weakness?denies.?Skin:?Itching?denies.?Rash?denies.?Neurologic:?Headache?denies.?Seizures?denies.?Psychiatric:?Comments?all negative.? * Medical History:? * Surgical History:?Biopsy on left forearm-benign 2019Basal cell cancer on forehead--Mohs surgery--Basal cell 2023 * Hospitalization/Major Diagno stic Procedure:?No Hospitalization History. * Family History:?Father: dece ased, diagnosed with Heart disease.?Mother: .? Brother has Amaral's esophagus Denies family hx of colon cancer. * Social History:?Tobacco Use:?Tobacco Use/Smoking?Are you a: nonsmoker.?Drugs/Alcohol:?Alcohol Screen?Did you have a drink containing alcohol in the past year??No,?Points?0,?Interpretation?Negative.?Miscellaneous:?Marital status: . Occupation: Retired High School special ed. counsellor. ???Nonsmoker; no sig alcohol. * Medications:?TakingMultivita min Magnesium Fish Oil Calcium Co Q-10 Medication List reviewed and reconciled with the patientTaking Multivitamin Taking Magnesium Taking Fish Oil Taking Calcium Taking Co Q-10 Medication List reviewed and reconciled with the patient * Allergies:?N.K.D.A.yes[Aller gies Verified] Objective: * Vitals:?Wt: 219 lbs, Ht: 76 in, BMI:26.65 Index, BP: 00/00 mm Hg. * Examination: ???General Examination: ?GENERAL APPEARANCE:?pleasant, well nourished, well developed, in no acute distress.?EYES:?sclera non-icteric.?ORAL CAVITY:?mucosa moist.?NECK/THYROID:?no cervical lymphadenopathy, neck supple.?SKIN:?nonjaundiced, no spider angiomata.?HEART:?S1, S2 normal.?LUNGS:?clear to auscultation bilaterally.?ABDOMEN:?normal bowel sounds, no guarding or rigidity, no guarding or rigidity, no masses palpable, soft, nontender, nondistended.?EXTREMITIES:?no edema.?NEUROLOGIC:?alert and oriented.? Assessment: * Assessment: 1.?Preprocedural examination - Z01.818 (Primary)?2.?Encounter for screening for malignant neoplasm of colon - Z12.11?3.?History of adenomatous polyp of colon - Z86.010? Overall, Alen appears quit e well. Given his age, excellent clinical appearance, personal history of tubular adenomas of the colon including a large polyp removed in 2019, and his last colonoscopy approaching the four-year jeanne, I did recommend a followup colonoscopy for further screening purposes. We did review the rationale for this regard to colon cancer prevention. Full consent was obtained for this, including risks of bleeding and perforation. The procedure will be done with monitored anesthesia care. He was given the below instructions regarding adjustment of his medications for the procedure. Alen was comfortable with this plan. Thank you again for allowing me to participate in Alen's care. I shall continue to keep you advised of his progress. Plan: * Treatment: Notes: Stop fish oil for 1 week before the colonoscopy??2.?History of adenomatous polyp of colon?Procedure: COLONOSCOPY (Ordered for 07/16/2024)* with MACsched for 11/06/24 at 8:20 ammiralax * Procedure Codes:?3017F COLOR ECTAL CA SCREEN DOC [id number] TOBACCO NON-ECLTR2797 BP SCR NOT PRFRM REC REASON NOS * Preventive Medicine:? ??Counseling:?Care goal follow-up plan:?Above Normal BMI Follow-up?Giving encouragement to exercise,?BMI management provided?Yes.? * Follow Up:?prn * * Sign off status: Completed true * Provider:?Jorge A Avalos MD Date:? 024 Generated for Codyi sandi/Neel/Lolasmitting on:?12/23/2024 12:36 PM EDT History and Physical Notes * HPI (History of Present Illness) Category Sub-Category Detail Notes Category Not es incontinence I saw Alen in the office today for evaluation of his personal history of tubular adenomas of the colon and need for colorectal cancer screening. I last saw Alen in October of 2020, at which time he underwent a followup colonoscopy with removal of a small tubular adenoma. He presently feels well. He enjoys a good appetite without any significant heartburn or dysphagia. His bowel movements are regular and without any signs of bleeding. He denies abdominal pain, jaundice, nor unintentional weight loss. He denies any known family history of colon cancer. Laboratories in October revealed a normal CBC, chemistries and renal function, and LFTs. Examination Category Sub-Category Detail Notes Category Not es General Examination GENERAL APPEARANCE: pleasant , well nourished, well developed, in no acute distress HEAD: EYES: sclera non-icteric EARS: NOSE: THROAT: NECK/THYROID: no cervical lymphade nopathy, neck supple HEART: S1, S2 normal CHEST: LUNGS: clear to auscultatio n bilaterally ABDOMEN: normal bowel sounds, no guarding or rigidity, no guarding or rigidity, no masses palpable, soft, nontender, nondistended NEUROLOGIC: alert and oriented SKIN: nonjaundiced, no spi gemini angiomata EXTREMITIES: no edema PERIPHERAL PULSES: BACK: BREASTS: MUSCULOSKELETAL: MALE GENITOURINARY: LYMPH NODES: RECTAL EXAM: FEMALE GENITOURINARY: ORAL CAVITY: mucosa moist
--- OUTSIDE RECORDS SUMMARY | 2024-12-23 12:36 | XMS_ITS ---
Author Organization Abilio Lloyd MD Address [address] [place] [phone] Care Team Providers Care Home Care Nurse Name Role Phone Abilio Lloyd Primary Care Provider Results Component Value Reference Range Notes Complete Blood Count Auto Di ff Reviewed date:11/13/2023 12:37:38 PM Interpretation: Performing Lab:[facility], [address] [place] [phone] Notes/Report: White Blood Count 5.9 4.8-10.8 X10*3/uL [...] NRBC Abs Auto 0.000 0.0-0.012 X10*3/uL Comprehensive [place]. Panel Fa st Reviewed date:11/12/2023 08:47:36 AM Interpretation: Performing Lab:[facility], [address] [place] [phone] Notes/Report: Sodium 138 135-145 mmol/L Potassium 3.7 3.3-5.1 mmol/L Chloride 104 96-108 mmol/L Carbon Dioxide 26 22-29 mmol/L Anion Gap 12 12-20 Blood Urea Nitrogen 12 9-16 mg/dL Creatinine 1.01 0.5-1.4 mg/dL Estimated Glomerular Filt Rate > 60 NOTE: For -[place] individuals, multiply the result by 1.210. Chronic [...] Panel Reviewed date:11/12/2023 08:47:15 AM Interpretation: Performing Lab:[facility], [address] [place] [phone] Notes/Report: Triglycerides 104 <150 mg/dL Desirable Triglyceride: [...] (Free>4and<10) Reviewed date:11/12/2023 08:47:46 AM Interpretation: Performing Lab:[facility], [address] [place] [phone] Notes/Report: PSA,Total (Free>4and<10) 0.57 0.00-4.00 ng/mL A [...] t Reviewed date:11/13/2023 12:37:21 PM Interpretation: Performing Lab:[facility], [address] [place] [address] Notes/Report: Urine, Clean Catch Color Urine Yellow Appearance Urine Clear PH 7.0 5.0-9.0 Glucose Urine UA Negative Negative mg/dL Urine Blood Negative Negative Specific [place] - Urine 1.010 1.005-1.025 Urine Protein Negative [...] Location Date Provider Diagnosis Abilio Lloyd MD [address] [place] [address] [place] [phone] 11/10/2023 Abilio Lloyd Blood tests for rout ine general physical examination Z00.00 and Hypercholesteremia E78.00 Assessments Encounter Date Diagnosis (ICD Code) Assessment Notes Treatment Notes Treatment Clinical Notes Section Notes 11/10/2023 Blood tests for routine general physical examination (ICD-10 - Z00.00) 11/10/2023 Hypercholesteremia (ICD-10 - E78.00) Plan Of Treatment Next Appt Details Provider Name:Abilio Castillo ier, 12/30/2024 10:30:00 AM, [address] [place] [address], [address] [facility], [place], [place], [phone], Progress Notes * Alen HIDALGO BDOB:07/1951 (74 yo M)Acc No.[id number]:11/10/2023 Progress Note Patient:?Alen HIDALGO Provider:?Abilio Lloyd MD :1950???Age:72 Y???Sex:Male Agus e:11/10/2023 Address: [address] [place], [id number] Subjective: * Chief Complaints: * ???1. Yearly labs. * Medical History:? Objective: * Vitals:? Assessment: * Assessment: 1.?Blood tests for routine g eneral physical examination - Z00.00 (Primary)???2.?Hypercholesteremia - E78.00??? Plan: * Treatment: 2.?Hypercholesteremia?LAB: Complete Blood Count Auto Diff (Collection Date & Time - 11/10/2023 07:15 AM) ?LAB: Comprehensive [place]. Panel Fast (Collection Date & Time - 11/10/2023 07:15 AM) ?LAB: Lipid Panel (Collection Date & Time - 11/10/2023 07:15 AM) ?LAB: PSA,Total (Free>4and<10) (Collection Date & Time - 11/10/2023 07:15 AM) ?LAB: UA ClnCatch+Micro w/rflx Cult (Collection Date & Time - 11/10/2023 07:15 AM) * Procedure Codes:?72869 VENIP UNCT, ROUTINE* * * The named appointment provid er may or may not be the originator of this progress note, and it is not deemed complete until electronically signed by the appointment provider. Sign off status: Pending * Provider:?Abilio Lloyd MD Date:?0 11/10/2023 Generated for Lashay junior/Neel/Martinitting on:?12/23/2024 12:36 PM EDT
--- OUTSIDE RECORDS SUMMARY | 2024-12-23 12:36 | XMS_ITS | Patient Health Record ---
Author Organization [facility] Address [address] [place] [address] Care Team Providers Care Blending Coordinator Name Role Phone Gabino LARSEN, Abilio Primary Care Provider Jorge A Anton Unavailable [phone] Allergies No Known Allergies Results Component Value Reference Range Notes Pathology (Not yet reviewed by provider) Interpretation: Performing Lab:[facility], [address] [place] [phone] Notes/Report: Name: Duc Hidalgo Age/Sex: 73/M : 1950 Unit#: [id number] Attend Dr: Jorge A Avalos MD Re11/06/24 Status : [facility] Location: [facility] Disch: SPEC : [id number] RECD : 11/06/24 STATUS: FERNANDA BREAUX NUM: [id number] FRANTZ: 11/06/[address] [facility] [address]: Jorge A Avalos MD ENTERED: 11/06/24- 49 SP TYPE: Surgical OTHR DR: Abilio Lloyd MD ORDERED: HE Stain/6, Gross Micro L4/2 Diagnosis A. Colon, cecal poly p: Polypoid colonic mucosa with mild changes consistent with hyperplastic polyp. B. Colon, ascending, polyp: Tubular adenoma; negative for high-grade dysplasia and carcinoma. Clinical History Pre-Op Dx: Screening , hx of colon polyps Post-Op Dx: Polyps, diverticulosis, hemorrhoids Microscopic Description Microscopic sections reviewed. Material Received A. Cecal polyp B. Ascending colon polyp Gross Description Received in two parts. Part A: Received in formalin labeled ?cecal polyp is a 0.25 cm ojeda-pink irregular tissue fragment, submitted in toto in cassette labeled A. Part B: Received in formalin labeled ascending colon polyp are 2 ojeda irregular and rectangular tissue f ragments measuring 0.25 and 0.35 cm, submitted in toto in a cassette labeled B. CEDS Copies To: Abilio Lloyd MD [facility] [address] [place] [address] [place] [address] CONTINUED ON NEXT PAGE Name: Duc Hidalgo Age/Sex: 73/M : 1950 Unit#: [id number] Attend Dr: Jorge A Avalos MD Re11/06/24 Status : [facility] Location: [facility] Disch: SPEC : [id number] RECD : 11/06/24 STATUS: FERNANDA BREAUX NUM: [id number] FRANTZ: 11/06/[address] [facility] [address]: Jorge A Avalos MD ENTERED: 11/06/24 49 SP TYPE: Surgical OTHR DR: Abilio Lloyd MD ORDERED: HE Stain/6, Gross Micro L4/2 Copies To: (Continued) Jorge A Avalos MD [address] [place] [address] Signed (si gnature on file) Amy Jackman 11/07/24 1046 END OF REPORT Reason For Referral No Information Medications Medication SIG (Take, Route, Frequency, Duration) Notes Start Date End Date Status Fish Oil Active Calcium Active Co Q-10 Active Multivitamin Active Magnesium Active Immunizations Vaccine Route Administration Date Status Comme nts Influenza Unknown 05/20/2020 Administered Social History Alcohol Screen Question Answer Notes Did you have a drink containing alcohol in the p ast year? No Points 0 Interpretation Negative Section Notes: Nonsmoker; no sig alcohol Nonsmoker; no sig alcohol Nonsmoker; no sig alcohol Nonsmoker; no sig alcohol Problems Problem Type SNOMED Code ICD Code Onset Dates Problem Status W/U Status Risk Notes Problem Screening for malignant neoplasm of colon (436302944) Encounter for screening for malignant neoplasm of colon (Z12.11) Active confirmed Problem History of adenomatous polyp of colon (929866127) History of adenomatous polyp of colon (Z86.010) Active confirmed Problem Preprocedural examination (105870923888586) Preprocedural examination (Z01.818) Active confirmed Problem 79876853 Rectal bleed (K62.5) Active confirmed Vital Signs Blood pressure diastolic 00 mm Hg 07/16/2024 Height 76 in 07/16/2024 Blood pressure systolic 00 mm Hg 07/16/2024 Weight 219 lbs 07/16/2024 BMI 26.65 kg/m2 07/16/2024 Encounters Encounter Location Date Provider Diagnosis [facility] [address] [place] [phone] 11/06/2024 Jorge A Bailey Colon cancer screeni ng Z12.11 ; Personal history of colonic polyps Z86.0100 ; Colon polyps K63.5 and Diverticulosis of large intestine without perforation or abscess without bleeding K57.30 [facility] [address] [place] [address] 07/16/2024 Jorge A Avalos Encounter for screen ing for malignant neoplasm of colon Z12.11 ; Preprocedural examination Z01.818 and History of adenomatous polyp of colon Z86.010 Assessments Encounter Date Diagnosis (ICD Code) Assessment Notes Treatment Notes Treatment Clinical Notes Section Notes 11/06/2024 Colon cancer screening (ICD-10 - Z12.11) 11/06/2024 Personal history of colonic polyps (ICD-10 - Z86.0100) 07/16/2024 Encounter for screening for malignant neoplasm of colon (ICD-10 - Z12.11) Stop fish oil for 1 week before the colonoscopy Overall, Nikko appears quite well. Given his age, excellent [...] adjustment of his medications for the procedure. Nikko was comfortable with this plan. Thank you again for allowing me to participate in Nikko's care. I shall continue to keep you advised of his progress. 07/16/2024 Preprocedural examination (ICD-10 - Z01.818) Overall, Nikko appears quite well. Given his age, excellent [...] adjustment of his medications for the procedure. Nikko was comfortable with this plan. Thank you again for allowing me to participate in Nikko's care. I shall continue to keep you advised of his progress. 11/06/2024 Colon polyps (ICD-10 - K63.5) 07/16/2024 History of adenomatous polyp of colon (ICD-10 - Z86.010) Overall, Nikko appears quite well. Given his age, excellent [...] adjustment of his medications for the procedure. Nikko was comfortable with this plan. Thank you again for allowing me to participate in Nikko's care. I shall continue to keep you advised of his progress. 11/06/2024 Diverticulosis of large intestine without perforation or abscess without bleeding (ICD-10 - K57.30) Plan Of Treatment Pending Test Test Name Order Date Pathology 11/06/2024 Future Test Test Name Order Date COLONOSCOPY 07/02/2014 COLONOSCOPY 10/30/2019 COLONOSCOPY 10/07/2020 COLONOSCOPY 07/16/2024 Insurance Providers Payer Name Payer Address Payer Phone Subscriber Number Group Number Insured Name Patient Relationship to Insured Coverage Start Date Coverage End Date [facility] ([employer]) [address] [place] [id number] [phone] [id number] NIKKO NOVOA Self - patient is the insured Medical (General) History Medical History History ICD Code Denies SC,DM,CVA,Lung disease,renal dise ase Negative colonoscopy in 2003 and a hyperplastic polyp removed in 1997 with a flex sig with Dr. Denys Ruelas nerve Neg. screening colonoscopy i n 11/2014 except for diverticulosis and internal hemorrhoids Colonoscopy in 10/2019 with a 1.5 cm tubular adenoma removed from sigmoid and a < 5mm adenoma removed as well in the ascending colon Colonoscopy 10/2020 with removal of a sma ll tubuar adenoma Surgical History Surgery Date(Month/Year) Biopsy on left forearm-benign 2019 Basal cell cancer on forehead--Mohs surg an--Basal cell 2023
--- OUTSIDE RECORDS SUMMARY | 2024-12-23 12:36 | XMS_ITS | Patient Health Record ---
Author Organization Abilio Lloyd MD Address [address] [place] [phone] Care Team Providers Care Firer Glost Kiln Name Role Phone Abilio Lloyd Primary Care Provider [phone] Allergies No Known Allergies Results Component Value Reference Range Notes Occult Blood, Stool, Guaiac Reviewed date:12/26/2023 02:16:03 PM Interpretation: Performing Lab: Notes/Report: Occult Blood, Stool, Guaiac Neg Pathology Reviewed date:11/07/2024 12:58:04 PM Interpretation: Performing Lab:[facility], [address] [place] [phone] Notes/Report: -- Name: Duc Hidalgo Age/Sex: 73/M : 1950 [id number]#: [id number] Attend Dr: Jorge A Avalos MD Re11/06/24 Status : [facility] Location: [facility] Disch: -- SPEC : [id number] RECD : 11/06/2443 [facility]US[facility] NUM: [id number] FRANTZ: 11/06/2435 [facility] DR: Jorge A Avalos MD ENTERED: 11/06/24- [...] To: Abilio Lloyd MD [facility] [address] [place] [address] [place], [place] [phone] CONTINUED ON NEXT PAGE -- Name: Duc Hidalgo Age/Sex: 73/M : 1950 Unit#: [id number] Attend Dr: Jorge A Avalos MD Re11/06/24 Status : [facility] Location: [facility] Disch: -- SPEC : [id number] RECD : 11/06/24 STATUS: FERNNADA REEder NUM: [id number] FRANTZ: 11/06/[address] [facility] [address]: Jorge A Avalos MD ENTERED: 11/06/24 49 SP TYPE: Surgical OTHR DR: Abilio Lloyd MD ORDERED: GIRMA Stain/6, Gross Sarah L4/2 Copies To: (Continued) Jorge A Avalos MD [address] [place] [address] -- Signed (si gnature on file) Amy Jackman 11/07/24 1046 -- END OF REPORT UA ClnCatch+Micro w/rflx Cul t (Not yet reviewed by provider) Interpretation: Performing Lab:[facility], [address] [place] [phone] Notes/Report: Urine, Clean Catch Color Urine Yellow Appearance Urine Clear PH 7.0 5.0-9.0 Glucose Urine UA Negative Negative mg/dL Urine Blood Negative Negative Specific [place] - Urine <= 1.005 1.005-1.025 Urine Protein [...] ff Reviewed date:12/23/2024 12:34:02 PM Interpretation: Performing Lab:[facility], [address] [place] [phone] Notes/Report: White Blood Count 6.1 4.8-10.8 X10*3/uL [...] X10*3/uL NRBC Abs Auto 0.000 0.0-0.012 X10*3/uL Reason For Referral No Information Medications Medication [...] 06/03/2019 Administered pt wasgiven the vaccine at [facility]. PPSV23 (Pnemovax) IM Intramuscular 08/20/2018 Administered pt had the vaccine at [facility]. Prevnar 13 IM Intramuscular 09/04/2017 Administered pt had the vaccine at [facility]. Shingrix IM Intramuscular 12/04/2017 Administered pt was given the vaccine at [facility] on [facility]. Shingrix IM Intramuscular 04/05/2018 Administered pt was given the vaccine at [facility] on [facility]. Influenza High Dose Unknown 05/12/2020 Administered [facility] TDaP Unknown 08/25/2020 Administered [facility] SARS-COV-2 Pfizer Unknown 09/09/2020 Administered SARS-COV-2 Pfizer [...] Problem Status W/U Status Risk Notes Problem 006001375 History of basal cell cancer (Z85.828) Active confirmed Problem 909165861 Cervical disc di sease (M50.90) Active confirmed Problem 32263486 Hypercholesterem ia (E78.00) Active confirmed Problem 41988526 Hearing loss, unspecified hearing loss type, unspecified [...] Location Date Provider Diagnosis Abilio Lloyd MD [address] [place] [address] Drive [address] [place] [phone] 12/23/2024 Abilio Lloyd Blood tests for rout ine general physical examination Z00.00 and Hypercholesteremia E78.00 Abilio Lloyd MD [address] [place] [address] [address] [place] [phone] 12/26/2023 Abilio Lloyd Vertigo R42 ; Annual physical exam Z00.00 ; History of basal cell cancer Z85.828 ; Hypercholesteremia E78.00 ; Colon cancer screening Z12.11 and Depression screening Z13.31 Assessments Encounter Date Diagnosis (ICD Code) Assessment Notes Treatment Notes Treatment Clinical Notes Section Notes 12/23/2024 Blood tests for routine general physical examination (ICD-10 - Z00.00) 12/26/2023 Vertigo (ICD-10 - R42) had o nly one episode, will continue to monitor 12/26/2023 Annual physical exam (ICD-10 - Z00.00) labs reviewed and discussed with patient 12/23/2024 Hypercholesteremia (ICD-10 - E78.00) 12/26/2023 History of basal endy l cancer (ICD-10 - Z85.828) going for some moh's surgery 12/26/2023 Hypercholesteremia (ICD-10 - E78.00) needs to get on diet, will continue to monitor 12/26/2023 Colon cancer screeni ng (ICD-10 - Z12.11) guaiac negative 12/26/2023 Depression screening (ICD-10 - Z13.31) negative screen Plan Of Treatment Pending Test Test Name Order Date Comprehensive Vendor. Panel Fast Lipid Panel 12/23/2024 PSA,Total (Free>4and<10) 12/23/2024 UA ClnCatch+Micro w/rflx Cult 12/23/2024 Next Appt Details Provider Name:Abilio Castillo ier, 12/30/2024 10:30:00 AM, [address] [place] [address], [address], [place], [place], [phone], Insurance Providers Payer Name Payer Address Payer Phone Subscriber Number Group Number Insured Name Patient Relationship to Insured Coverage Start Date Coverage End Date [facility] [address] [place] [phone] [id number] Alen Ramirez Self - patient is the insured Medical (General) History Medical History History ICD Code 11/19/2014 Dr Avalos repeat in 10 years; 11/04/[address] Avalos - repeat 1 year; colonoscopy 10/14/20 - repeat [address] Avalos:Colonoscopy 11/05 repeat 5 y
--- OUTSIDE RECORDS SUMMARY | 2024-12-23 12:37 | XMS_ITS ---
Author Organization Abilio Lloyd MD Address [address] [place] [phone] Care Team Providers Care Presetter Operator Name Role Phone Abilio Lloyd Primary Care [...] Date Provider Diagnosis Abilio Lloyd MD [address] [place] [address] [place] [phone] 12/26/2023 Abilio Lloyd Vertigo R42 ; Annual [...] Follow Up: 1 Year, Reason: Provider Name:Abilio Castillo ier, 12/30/2024 10:30:00 AM, [address], [address], [place], [phone], Progress Notes * Alen HIDALGO BDOB:07/1951 (73 yo M)Acc No.[id number]:12/26/2023 Progress Notes Patient:?Alen Hidalgo B Provider:?Abilio Lloyd MD :1950???Age:73 Y???Sex:Male Agus e:12/26/2023 Address:[address] [place] [address] [phone] Subjective: * Chief Complaints: * ???Annual visitNo [...] cat x1. no Travel outside of the [place]. * Medications:?Not-Taking/PRNC lobetasol Propionate 0.05 % [...] ?PSA,Total (Free>4and<10) 0.57 0.00-4.00 - ng/mL ???Lab:Comprehensive [facility]. P nereyda Fast (Order Date - 11/10/2023) [...] mg/dL ?Urine Blood Negative Negative - ?Specific [place] - Urine 1.010 1.005-1.025 - ?Urine Protein [...] negative.??6.?Depression screening? Notes: negative screen.?? * Procedure Codes:?64688 TEST FOR BLOOD, FECES * Follow Up:?1 Year * * Sign off status: Completed true * Provider:?Abilio Lloyd MD Date:?0 12/26/2023 Generated for Lashay junior/Neel/eTransmitting on:?12/23/2024 12:36 PM EDT History and Physical [...]
[2024-12-23 13:13] LABS: PSA,Total (Free>4and<10) 0.75 ng/mL (0.00-4.00)
[2024-12-23 13:44] LABS: Alanine Aminotransferase 36 U/L (0-40); Albumin Level 4.3 g/dL (3.5-5.0); Anion Gap 13 (12-20); Aspartate Amino Transferase 45 U/L (5-37); Bilirubin Total 0.7 mg/dL (0.0-1.0); Blood Urea Nitrogen 11 mg/dL (9-16); Calcium 9.6 mg/dL (8.4-10.2); Carbon Dioxide 25 mmol/L (22-29); Chloride 105 mmol/L (96-108); Cholesterol 207 mg/dL (<200); Estimated Glomerular Filt Rate > 60; Glucose Fasting 96 mg/dL (60-99); HDL Cholesterol 57 mg/dL (>40); LDL Cholesterol Calculated 135 mg/dL (<100); Potassium 4.3 mmol/L (3.3-5.1); Sodium 139 mmol/L (135-145); Total Protein 6.8 g/dL (6.5-8.0); Triglycerides 78 mg/dL (<150)
[2024-12-23 14:30] LABS: Alkaline Phosphatase 59 U/L (39-117)
== END 2024-12-23 12:01 | disposition home or self-care (01) ==
LOC: HO.LNP 12:00
PROVIDERS: Visit Provider Internal Medicine
DX: Z00.00 Encounter for general adult medical examination without abnormal findings (principal); E78.00 Pure hypercholesterolemia, unspecified; Z12.5 Encounter for screening for malignant neoplasm of prostate
CPT/HCPCS: 80053; 80061; 81001; 84153; 85025

== ENCOUNTER 2025-07-03 12:10 | Outpatient (REF) | payer OTHER, SELFPAY ==
[2025-07-03 12:13] LABS: MANUAL DIFF FLAG NO
[2025-07-03 12:38] LABS: Hematocrit 51.3 % (42.0-52.0); Hemoglobin 17.6 g/dl (14.0-18.0); Imm Gran Abs Auto 0.01 X10*3/uL (0.00-0.03); Imm Gran Pct Auto 0.2 % (0.0-0.4); Lymphocytes Absolute Auto 2.0 X10*3/uL (1.2-4.9); Mean Corpuscular HGB Conc 34.3 g/dl (31.0-36.0); Mean Corpuscular Hemoglobin 32.2 pg (27.0-33.0); Mean Corpuscular Volume 93.8 fL (80.0-98.0); NRBC Abs Auto 0.000 X10*3/uL (0.0-0.012); NRBC Pct Auto 0.0 /100WBC (0.0-0.2); Platelet Count 200 X10*3/uL (160-400); Red Blood Count 5.47 X10*6/uL (4.60-5.80); White Blood Count 6.2 X10*3/uL (4.8-10.8)
== END 2025-07-03 12:11 | disposition home or self-care (01) ==
LOC: HO.LNP 12:10
PROVIDERS: Visit Provider Internal Medicine
DX: D72.820 Lymphocytosis (symptomatic) (principal)
CPT/HCPCS: 85025